=== PATIENT | female | born 1980 | race Caucasian/White ===

== ENCOUNTER 2024-08-09 16:34 | Emergency (ER) | payer OTHER, SELFPAY ==
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
--- OUTSIDE RECORDS SUMMARY | 2024-08-09 16:36 | XMS_ITS | Clinical Summary ---
Author Organization [facility] Address [address] [place] [address] Care Team Providers Care Cage Manager Name Role Phone Saida Fox MD Primary Care Provider [phone] Source Comments [facility],non-owned Affiliates and Associated Physician Practices is amultiple site organization consisting of ambulatory clinics and hospital sitesin [place], [place], [place] and [place]. This disclosure is being madepursuant to the Care Everywhere program and may not contain all information available regarding this patient. Last updated 18.[facility] Allergies No known active allergies Medications * This document contains information received from the source organization and may not represent a complete record from that organization. * Be aware that medications may not be up to date on this document. Alwaysverify current medications with the patient. albuterol HFA (VENTOLIN HFA) 108 (90 BASE) MCG/ACT inhaler Inhale 2 (two) puffs by mouth every 4 hours as needed 6 Active Blood Glucose Monitoring Suppl (CoalfireUCH VERIO) w/Device KIT 9 Active empagliflozin (JARDIANCE) 25 MG tablet Take 1 (one) tablet by mouth once daily 0 Active LORazepam (ATIVAN) 0.5 MG tablet Take 1 tablet by mouth every 12 hours as needed for Anxiety 60 tablet 0 Active ARIPiprazole (ABILIFY) 10 MG tablet Take 1 tablet by mouth once daily 30 tablet 3 0 Active escitalopram (LEXAPRO) 20 MG tablet Take 1 tablet by mouth once daily 30 tablet 3 0 Active cyclobenzaprin e (FLEXERIL) 10 MG tablet Take 1 (one) tablet by mouth 3 times daily as needed for Muscle Spasms 20 tablet 1 Active ibuprofen (MOTRIN) 800 MG tablet Take 1 (one) tablet by mouth every 6 hours as needed for Pain 20 tablet 1 Active atorvastatin (Lipitor) 20 MG tablet Take 1 (one) tablet by mouth 3 Active Trulicity 1.5 MG/0.5ML injection Inject 0.5 mL subcutaneously every Tuesday 3 Active lisinopril (Prinivil; Zestril) 20 MG tablet Take 1 (one) tablet by mouth once daily 3 Active Latuda 60 MG tablet Take 40 mg by mouth at bedtime 2 Active metFORMIN (Glucophage) 500 MG tablet Take 1 (one) tablet by mouth 2 times daily Active metoprolol succinate XL 24hr (Toprol XL) 100 MG tablet Take 1 (one) tablet by mouth once daily 3 Active acetaminophen (Tylenol) 325 MG tablet Take 2 (two) tablets by mouth every 6 hours Maximum allowable Acetaminophen amount = 4 Grams (4000 mg) / 24 hours. 3 Active gabapentin (Neurontin) 300 MG capsule Take 1 (one) capsule by mouth 3 times daily 30 capsule 3 3 Active erythromycin (Romycin) 5 MG/GM ophthalmic ointment Instill into left eye 4 times daily 3.5 g 3 Active ofloxacin (Ocuflox) 0.3 % ophthalmic solution Instill 1 (one) drop into left eye 4 times daily 10 mL 3 Active artificial tears ophthalmic solution Instill 1 (one) drop into left eye every hour while awake 30 mL 3 Active polyvinyl alcohol-povido ne PF 1.4-0.6 % ophthalmic solution Instill 1 (one) drop into left eye every hour while awake 50 Each 3 Active ganciclovir (Zirgan) 0.15 % ophthalmic gel Instill 1 (one) drop into left eye 5 times daily while awake 5 g 3 Active prednisoLONE acetate (Pred Forte) 1 % ophthalmic suspensionIndi cations:Herpes zoster ophthalmicus, left eye Instill 1 (one) drop into left eye 4 times daily 15 mL 1 3 Active capsaicin (Zostrix) 0.025 % creamIndicatio ns:Herpes zoster ophthalmicus, left eye Apply to affected area 3 times daily 25 g 3 Active amitriptyline (Elavil) 50 MG tablet Take 1 (one) tablet by mouth once daily 3 Active Blood Pressure Monitoring KIT Large cuff Take bp bid 2 Active busPIRone (Buspar) 10 MG tablet TAKE 1 TABLET BY MOUTH TWICE A DAY DIRECTED 3 Active cetirizine (ZyrTEC) 10 MG tablet Take 1 (one) tablet by mouth once daily Active clindamycin (Cleocin) 300 MG capsule TAKE 1 CAPSULE BY MOUTH EVERY 8 HOURS FOR 10 DAYS 3 Active doxazosin (Cardura) 1 MG tablet 1 tablet Orally Once a day Active vitamin D, ergocalciferol , (Drisdol) 1.25 MG (32366 UT) capsule TAKE 1 CAPSULE BY MOUTH EVERY WEEK DIRECTED 3 Active gabapentin (Neurontin) 800 MG tablet TAKE 1 TABLET BY MOUTH EVERY 8 HOURS NEEDED FOR 30 DAYS 3 Active HYDROcodone-ac etaminophen ([place]) 5-325 MG tablet 1 tablet as needed Orally every 6 hrs Active hydrOXYzine pamoate (Vistaril) 25 MG capsule TAKE 1 CAPSULE BY MOUTH TWICE A DAY NEEDED FOR ANXIETY for 15 Active levonorgestrel (Mirena, 52 MG,) 20 MCG/DAY IUD Active liothyronine (Cytomel) 25 MCG tablet 1 tablet on an empty stomach Orally Once a day for 30 day(s) Active lisinopril (Prinivil; Zestril) 10 MG tablet Take 1 (one) tablet by mouth once daily 2 Active LORazepam (Ativan) 1 MG tablet 1 tablet as needed Orally twice a day Active metFORMIN (Glucophage) 500 MG tablet Take 1 (one) tablet by mouth 2 times daily with morning and evening meal Active methocarbamol (Robaxin) 500 MG tablet TAKE 1 TABLET BY MOUTH 4 TIMES DAILY FOR 10 DAYS. Active methylPREDNISo lone (Medrol Dosepak) 4 MG tablet TAKE 6 TABLETS ON DAY 1 DIRECTED ON PACKAGE AND DECREASE BY 1 TAB EACH DAY FOR A TOTAL OF 6 DAYS 3 Active metoprolol tartrate IR (Lopressor) 50 MG tablet Take 1 (one) tablet by mouth 2 times daily Active mupirocin (Bactroban) 2 % ointment APPLY A SMALL AMOUNT TO AFFECTED AREA 3 TIMES A DAY 3 Active neomycin-polym yxin-dexameth (Maxitrol) ophthalmic suspension LOCATION: LEFT EYE. INSTILL ONE DROP INTO THE LEFT EYE THREE TIMES A DAY FOR FIVE DAYS 3 Active phentermine (Adipex-P) 37.5 MG tablet Take 1 (one) tablet by mouth once daily Active traMADol (Ultram) 50 MG tablet TAKE 1 TABLET BY MOUTH EVERY 8 HOURS NEEDED FOR 30 DAYS 3 Active topiramate (Topamax) 50 MG tablet 1 tablet Orally Twice a day Active prednisoLONE acetate (Pred Forte) 1 % ophthalmic suspension prednisolone acetate 1 % eye drops,suspension INSTILL 1 DROP INTO LEFT EYE 3 TIMES DAILY UNTIL NXT APPT IN 2 WEEKS Active Active Problems Problem Noted Date Diagnosed Date Herpes zoster conjunctivitis 09/18/2022 Herpes zoster ophthalmicus, left eye 09/18/2022 Bipolar 2 disorder 09/25/2018 Achilles tendinitis of right lower extremity MDD (major depressive disorder), recurrent episo de 11/20/2016 Bulimia nervosa 11/20/2016 Borderline personality disorder 11/03/2015 Sleep apnea 09/15/2015 GERD (gastroesophageal reflux disease) 4 Resolved Problems Problem Noted Date Diagnosed Date Resolved Date No diagnosis on [place] I 12/04/201709/25 Agoraphobia with panic disorder 11/20/2016 09/25/2018 Immunizations Immunization Administration Dates Next Due COVID ADRIANA PRIMARY 18+YR 07/24/2020 TDAP (7yrs+) 12/12/2011 Family History Medical History Relation Name Comments Diabetes Father Hypertension Father Depression Maternal Uncle Depression Mother Diabetes Mother Hypertension Mother Relation Name Status Comments Father Maternal Uncle Mother Social History Tobacco Use Types Packs/Day Years Used Date Smoking Tobacco: Every Day Cigarettes Smokeless Tobacco: Never Tobacco Cessation:Ready to Q uit: Not Asked; Counseling Given: Not Answered Alcohol Use Standard Drinks/Week Comments No 0 (1 standard drink = 0.6 oz pur e alcohol) Comments Unknown Sex and Gender Information Value Date Recorded Sex Assigned at Not on file 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 Gender Identity Not on file Sexual Orientation Not on file Last Filed Vital Signs Vital Sign Reading Time Taken Comments Blood Pressure 152/87 01/01/2023 10:48 AM CDT Pulse 100 01/01/2023 10:48 AM CDT Temperature 36.3 C (97.4 F) 01/01/2023 10:48 AM CDT Respiratory Rate 20 01/01/2023 10:48 AM CDT Oxygen Saturation 100% 01/01/2023 10:48 AM CDT Inhaled Oxygen Concentration - - Weight 167.8 kg (370 lb) 01/01/2023 10:48 AM CDT Height 180.3 cm (5' 11 ) 01/01/2023 10:48 AM CDT Body Mass Index 51.6 01/01/2023 10:48 AM CDT Plan of Treatment Health Maintenance Due Date Last Done Comments MAMMOGRAM 1980 Opioid Medication Agreement - Annual 1981 PAP SMEAR 1981 HIV SCREENING 1996 HEPATITIS C SCREENING 07/15/1999 HEPATITIS B VACCINE (1 of 3 - 19+ 3-dose series) 2000 PNEUMOCOCCAL VACCINE (1 of 2 - PCV) 2000 DTAP/TDAP/TD VACCINES (2 - Td or Tdap) 12/11/2021 12/12/2011 COVID-19 VACCINE (3 - season) 2023 05/16/2022, 07/24/2020 INFLUENZA VACCINE (Season Ended) 2024 03/26/2022 SCREENING FOR DIABETES 09/19/2025 , 09/19/2022, 09/18/2022, Additional history exists ZOSTER VACCINE (1 of 2) 07/20/2031 HIB VACCINE Aged Out No longer eligi ble based on patient's age to complete this topic HPV VACCINE Aged Out No longer eligi ble based on patient's age to complete this topic MENINGOCOCCAL (Group B) VACCINE SHARED DECISION-MAKING Aged Out No longer eligible based on patient's age to complete this topic MENINGOCOCCAL GROUPS A/C/Y/W VACCINE Aged Out No longer eligible based on patient's age to complete this topic Procedures Procedure Name Priority Date/Time Associated Diagnosis Comments GLUCOSE - POINT OF CARE Routine 09/19/2022 9:44 AM CDT from Last 3 Months or Most Recently Relevant to Health Maintenance Results * (ABNORMAL) GLUCOSE - POINT OF CARE (09/19/2022 9:44 AM CDT) Glucose WB/POC 146(H) 70 - 115 mg/dL 09/19/2022 9:49 AM CDT [facility] Specimen Type Cap Fingerstick 2022 9:49 AM CDT [facility] Blood BLOOD SPECIMEN / Unknown 09/19/2022 9:44 AM CDT 09/19/2022 9:49 AM CDT Dalia Hodges MD LAB - POINT OF CARE ORDERABLES Final Result [facility] [address] [place] [address], [facility] [phone] from Last 3 Months or Most Recently Relevant to Health Maintenance Insurance [facility] Advance Directives * Full Code (Latest Code Status on File) Date Activated Date Inactivated Comments 09/18/2022 10:01 PM 09/19/2022 7:37 PM Care Teams Cage Manager Relationship Specialty Start Date End Date Saida Fox MD [address] [place] [address], [address] [facility] [address] [place] [address] PCP - General Family Medicine 11/21/23
--- OUTSIDE RECORDS SUMMARY | 2024-08-09 16:36 | XMS_ITS | Encounter Summary ---
Author Organization [facility] Address [address] [place] [address] Care Team Providers Care Specimen Processor Name Role Phone Brenda Shelton MD Primary Care Provider [phone] Trever Elliott Primary Care Provider [phone] Saida Fox MD Primary Care Provider [phone] Encounter Details Date Type Department Care Team (Late st Contact Info) Description 09/18/2022 Ophth Exam [facility] - Ophthalmology [address] [place] [address] Bernie Anders DO [address] [place] [address] Social History Tobacco Use Types Packs/Day Years Used Date Smoking Tobacco: Every Day Cigarettes Smokeless Tobacco: Never Alcohol Use Standard Drinks/Week Comments No 0 (1 standard drink = 0.6 oz pur e alcohol) Comments Unknown Sex and Gender Information Value Date Recorded Sex Assigned at Not on file 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 Gender Identity Not on file Sexual Orientation Not on file documented as of this encounter Plan of Treatment Not on file documented as of this encounter Visit Diagnoses Not on filedocumented in this encounter Care Teams Specimen Processor Relationship Specialty Start Date End Date Brenda Shelton MD [address] [place] [id number] PCP - General 09/10/15 11/01/22 Trever Elliott PA [address] [place] [phone] PCP - General Physician Fiber Design Engineer 11/02/22 11/20/23 Saida Fox MD [facility], [address] [place] [address] [place] [address] PCP - General Family Medicine 11/21/23 documented as of this encounter
--- OUTSIDE RECORDS SUMMARY | 2024-08-09 16:36 | XMS_ITS ---
Author Organization 1 OF [facility] Address [address] [place] [address] Care Team Providers Care Android Programmer Name Role Phone Saida Olivera Primary Care Provider Jackie Lockwood [phone] REASON FOR VISIT vob Encounters Encounter Location Date Provider Diagnosis 1 OF Erika [facility] [address] [place] [address] 02/10/2024 Jackie Contreras Plan Of Treatment Next Appt Details Provider Name:Jackie Contreras, 02/11/2025 09:00:00 AM, [address], [place], [address], Progress Notes * Judah GALVEZ:1980 ( 43 yo F)Acc No.[id number]:02/10/2024 Patient: Derek BAY :1980 A ge:43 Y S ex:Female Address:[address] [place], [address] * true * Date: Generated for Mary levy/Nayelyg/eTransmitting on: 0 08/09/2024 04:36 PM CDT
--- OUTSIDE RECORDS SUMMARY | 2024-08-09 16:36 | XMS_ITS | Encounter Summary ---
Author Organization [facility] Address [address] [facility] [place] [address] Care Team Providers Care Fur Blender Name Role Phone Brenda Shelton MD Primary Care Provider [phone] Trever Elliott Primary Care Provider [phone] Saida Fox MD Primary Care Provider [phone] Encounter Details Date Type Department Care Team (Late st Contact Info) Description 10/09/2022 Ophth Exam [facility] - Ophthalmology [address] [place] [address] Mariel Marshall MD [address] [place] [address] Social History Tobacco Use Types Packs/Day Years Used Date Smoking Tobacco: Every Day Cigarettes Smokeless Tobacco: Never Alcohol Use Standard Drinks/Week Comments No 0 (1 standard drink = 0.6 oz pur e alcohol) Comments Unknown Sex and Gender Information Value Date Recorded Sex Assigned at Not on file 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 Gender Identity Not on file Sexual Orientation Not on file documented as of this encounter Plan of Treatment Not on file documented as of this encounter Visit Diagnoses Not on filedocumented in this encounter Care Teams Fur Blender Relationship Specialty Start Date End Date Brenda Shelton MD [address] [place] [phone] PCP - General 09/10/15 11/01/22 Trever Elliott PA [address] [place] [phone] PCP - General Physician Oil Rag Washer 11/02/22 11/20/23 Saida Fox MD [address] [place] [address], [facility] [address] [facility] [id number] [place] [address] PCP - General Family Medicine 11/21/23 documented as of this encounter
--- OUTSIDE RECORDS SUMMARY | 2024-08-09 16:37 | XMS_ITS ---
Author Organization 1 OF [facility] Address [address] [address] Care Team Providers Care Millwright Name Role Phone Saida Olivera Primary Care Provider UnavailJackie Jasmine Unavailable [phone] Allergies No Known Allergies REASON FOR VISIT Blisters on LT foot Medications Medication SIG (Take, Route, Fr equency, Duration) Notes Start Date End Date Status Metoprolol Succinate ER Active Mounjaro Active Lisinopril Active Escitalopram Oxalate Active Nexplanon Active Cymbalta Active Gabapentin Active Social History Tobacco Use: Social History Observation Description Date Details (start date - stop date) Current Smoker NA - NA Tobacco Control (Standard) Question Answer Notes Tobacco use: Current smoker Problems Problem Type SNOMED Code ICD Code Onset Dates Problem Status W/U Status Risk Notes Problem [id number] Type 2 diabetes mellitus with other diabetic neurological complication (E11.49) Active confirmed Vital Signs Height 71 in 02/13/2024 Weight 333 lbs 02/13/2024 BMI 46.44 kg/m2 02/13/2024 Encounters Encounter Location Date Provider Diagnosis 1 OF [facility] [address] [address] 02/13/2024 Jackie Contreras Blister of second to e S90.426A ; Type 2 diabetes mellitus with other diabetic neurological complication E11.49 ; Xerosis of skin L85.3 ; Callus of foot L84 ; Right foot pain M79.671 and Left foot pain M79.672 Assessments Encounter Date Diagnosis (ICD Code) Assessment Notes Treatment Notes Treatment Clinical Notes Section Notes 02/13/2024 Blister of second toe (ICD-10 - S90.426A) Patient visit today included a review of medical history, review of systems, physical exam and discussion of exam findings, and discussion of diagnoses and treatment options.I discussed with the patient that she has no signs of infection to the toe and the blister is not open. I explained that it could potentially be shingles. She was advised to keep the toes covered with antibiotic ointment and a Band-Aid. She will contact her primary care doctor for potential treatment of shingles. She will call with any further issues. 02/13/2024 Type 2 diabetes mellitus with other diabetic neurological complication (ICD-10 - E11.49) Diabetic foot education was discussed including the nature of increased risk of developing foot problems due to the damage nerves and vessels of the feet caused by diabetes. The importance of daily self foot exams was stressed. Additionally, the patient was encouraged to control the blood sugar as well as possible and I explained the direct correlation between the incidence of diabetic foot complications and how well the blood sugar is controlled. I encouraged the patient to walk for exercise to help improve circulation to the feet as well as to help control excess blood sugar which I explained may also help to reduce or slow the progression of neuropathy symptoms. Additionally I recommended daily application of lotion to the feet to keep skin well hydrated. Advised to avoid walking w/o shoes on and discussed the importance of wearing properly fitted and supportive shoes and how wearing a shoe that does not fit properly can lead to blisters, open sores, infections and amputation. Literature regarding diabetic foot care was dispensed 02/13/2024 Xerosis of skin (ICD-10 - L85.3) She purchased at [employer] lotion and can apply this daily. 02/13/2024 Callus of foot (ICD-10 - L84) Considering the associated comorbidities and physical exam findings today, this patient is at substantial risk of developing serious foot complications in the absence of regular and professional palliative foot care. 02/13/2024 Right foot pain (ICD-10 - M79.671) 02/13/2024 Left foot pain (ICD-10 - M79.672) Plan Of Treatment Treatment Notes Assessment Notes Blister of second toe Patient visit chiojosue villatoro included a review of medical history, review of systems, physical exam and discussion of exam findings, and discussion of diagnoses and treatment options.I discussed with the patient that she has no signs of infection to the toe and the blister is not open. I explained that it could potentially be shingles. She was advised to keep the toes covered with antibiotic ointment and a Band-Aid. She will contact her primary care doctor for potential treatment of shingles. She will call with any further issues. Type 2 diabetes mellitus wit h other diabetic neurological complication Diabetic foot education was discussed including the nature of increased risk of developing foot problems due to the damage nerves and vessels of the feet caused by diabetes. The importance of daily self foot exams was stressed. Additionally, the patient was encouraged to control the blood sugar as well as possible and I explained the direct correlation between the incidence of diabetic foot complications and how well the blood sugar is controlled. I encouraged the patient to walk for exercise to help improve circulation to the feet as well as to help control excess blood sugar which I explained may also help to reduce or slow the progression of neuropathy symptoms. Additionally I recommended daily application of lotion to the feet to keep skin well hydrated. Advised to avoid walking w/o shoes on and discussed the importance of wearing properly fitted and supportive shoes and how wearing a shoe that does not fit properly can lead to blisters, open sores, infections and amputation. Literature regarding diabetic foot care was dispensed Xerosis of skin She purchased at [employer] lotion and can apply this daily. Callus of foot Considering the asso ciated comorbidities and physical exam findings today, this patient is at substantial risk of developing serious foot complications in the absence of regular and professional palliative foot care. Next Appt Details Follow Up: 1 Year,prn, John n: Provider Name:Jackie Contreras, 02/11/2025 09:00:00 AM, [address], [facility] [address], [place], [address], Procedure Notes * Category Sub-Category Detail Notes PALLIATIVE FOOT CARE: Callus paring: (57860) Fi ve or more calluses as noted above reduced with a sterile scalpel blade Progress Notes * Derek GALVEZ LDOB:1980 (43 yo F)Acc No.[id number]:02/13/2024 Progress Notes Patient: Derek BAY Provider: Charis Contreras DPM :1980 A ge:43 Y S ex:Female Date:02/13/2024 [id number] Pcp:Saida Olivera Subjective: * Chief Complaints: * B listers on LT foot * HPI: P rimary reason for visit:: New Patient Evaluation: [age] year old female, referred by google/internet search, PTO with chief complaint of blisters on the left foot that are itchy and painful. She states that she also has large calluses that are painful. She says this started suddenly about a week ago with the blisters. She denies any injury. She says the pain she is having is sharp and rates it a 3/10. Pt states the problem has improved but gets worse when she wear shoes, when walking and standing too long. She states not wearing shoes or being off her feet helps the problem. Pt denies any treatment to fix the issue. Pt reports she has had shingles this year and was worried if the blisters were related to the virus. She is scheduled to see her PCP also. She states the calluses hurt when she walks. She is a diabetic. Age diagnosed: 41 Last A1c: 6.8. * ROS: G ENERAL: NAUSEA, FEVER OR CHILLS d enies, d enies. U NEXPLAINED LOSS OR GAIN OF WEIGHT d enies. U NEXPLAINED FATIGUE OR LACK OF ENERGY d enies. R ECENT FALL d enies. P ERIPHERAL VASCULAR: FATIGUE IN CALF MUSCLE WHILE WALKING d enies. P AIN, SWELLING OR FEELING OF TIGHTNESS IN LEG d enies. F REQUENT OR CHRONIC SWELLING OF LEGS d enies. T OES TURN BLUE, WHITE, PAINFUL WITH COLD TEMPERATURE d enies. N EUROLOGICAL: DIZZINESS, LIGHT HEADED OR FAINTING d enies. W EAKNESS OR PARALYSIS d enies. D IFFICULTY WITH BALANCE d enies. P ERIPHERAL NEUROLOGICAL: BURNING, TINGLING, STINGING SENSATION OF FEET d enies. N UMBNESS OF FOOT / FEET d enies. W EAKNESS OF FOOT / FEET d enies. G ASTROINTESTINAL: ABDOMINAL PAIN d enies. B LOODY STOOL d enies. F REQUENT HEARTBURN d enies. F REQUENT NAUSEA OR VOMITING d enies. S KIN: EXCESSIVE SWEATING OF FEET / HANDS d enies. C HRONIC OR RECURRENT SKIN RASH d enies. N ONHEALING SKIN LESIONS d enies. T ENDENCY TO FORM THICK SCARS (KELOIDS) d enies. M USCULOSKELETAL: LOW BACK PAIN d enies. H IP PAIN d enies. K NEE PAIN d enies. S WELLING / STIFFNESS JOINTS OF HANDS / FEET d enies. H EMATOLOGY/ONCOLOGY: ANEMIA d enies. B LEED or BRUISE EASILY d enies.?ANTI-COAGULANT USE d enies. * Medical History: * Surgical History: N o Surgical History documented. * Hospitalization/Major Diagno stic Procedure: * Family History: diabetes, gout, breast cancer, ovarian. * Social History: T obacco Use: T obacco Control (Standard) T obacco use: C urrent smoker D rugs/Alcohol: A lcohol use: Denies current alcohol use. Recreational drugs: Patient denies recreational drug use. M iscellaneous: L iving with: spouse. 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 * Medications: T akingGabapentin Cymbalta Mounjaro Metoprolol Succinate ER Nexplanon Escitalopram Oxalate Lisinopril Medication List reviewed and reconciled with the patientTaking Gabapentin Taking Cymbalta Taking Mounjaro Taking Metoprolol Succinate ER Taking Nexplanon Taking Escitalopram Oxalate Taking Lisinopril Medication List reviewed and reconciled with the patient * Allergies: N .K.D.A.no[Allergies Verified] Objective: * Vitals: W t:333lbs, Wt-k.05 kg, Ht: 71 in, BMI:46.44Index. * Examination: G eneral Examination: Constitutional / Appearance: N o acute distress , Well nourished, Appropriate personal hygiene. Mental status: C ooperative, Oriented to person, place and time, Mood and affect: normal, Judgement and intellect: normal with appropriate response to questions. Shoes today: s lides. DIABETIC FOOT EXAM L ower Extremity Neurological Exam performed:?Yes F ootwear Evaluation performed: Y es L ower Extremity VASCULAR: : Pulses: D P and PT pulses, palpable, bilateral. Temperature gradient: w arm from proximal to distal, bilateral. Pedal hair: p resent, bilateral. Capillary refill at distal toes l ess than 3 seconds, bilateral. L ower Extremity DERM: : Skin: d ry, n o suspicious lesions, without interdigital maceration, bilateral. There is some mild erythema noted to the dorsal second toe DIPJ. There is a possible blister noted deep in the soft tissue at the tip of the second toe. No drainage noted. No acute signs of infection noted. No increased skin temperature noted. Pain with palpation of the toe. Multiple skin fissures noted bilaterally on the plantar aspect of the foot. No active open wound noted.. Nails: N ails appear unremarkable. Hyperkeratotic lesions LEFT foot: s ub 5th MTH, sub 1st MTH. Hyperkeratotic lesions RIGHT foot: m edial hallux IPJ, sub 1st MTH, sub 5th MTH. L ower Extremity NEURO: : General sensation appears i ntact, bilateral. Muscle tone w ithin normal limits, bilateral. Monofilament test (10 gram pressure) E xam of 02/13/2024?revealed intact sensation to, entire foot, bilateral. Vibration perception: E xam of 02/13/2024: n oted significantly diminished per evaluation with 128Hz tuning fork applied to distal hallux compared to ipsilateral medial malleolus @ bilateral feet. L ower Extremity MSK: : Gait W devon-based gait. Foot type: B ilateral lower extremity exhibits p es cavus foot type with increased medial arch. Muscle strength: 5 /5, all 4 quadrants tested, bilateral.? Left lower extremity inspection and palpation: N o palpable masses or nodules noted. Adequate range of motion noted to the joints. Some pain with palpation of the second toe.. Right lower extremity inspection and palpation: N o palpable masses or nodules noted. Adequate range of motion noted to the joints. . Assessment: * Assessment: 1. T ype 2 diabetes mellitus with other diabetic neurological complication - E11.49 (Primary)? 2. B peter of second toe - S90.426A 3 . X erosis of skin - L85.3 4 . C allus of foot - L84 5 . R ight foot pain - M79.671 6 . L eft foot pain - M79.672 Plan: * Treatment: 2. B peter of second toe Notes: Patient visit today included a review of medical history, review of systems, physical exam and discussion of exam findings, and discussion of diagnoses and treatment options.I discussed with the patient that she has no signs of infection to the toe and the blister is not open. I explained that it could potentially be shingles. She was advised to keep the toes covered with antibiotic ointment and a Band-Aid. She will contact her primary care doctor for potential treatment of shingles. She will call with any further issues. 3. X erosis of skin Notes: She purchased at [employer] lotion and can apply this daily. 4. C allus of foot Notes: Considering the associated comorbidities and physical exam findings today, this patient is at substantial risk of developing serious foot complications in the absence of regular and professional palliative foot care. * Procedures: P ALLIATIVE FOOT CARE:: Callus paring: ( [id number]) Five or more calluses as noted above reduced with a sterile scalpel blade. * Procedure Codes: 1 1057 TRIM SKIN LESIONS, OVER 18534G HG A1C LEVEL LT 7.0% * Follow Up: 1 Year,prn * Images: * MINER BLASTING Sign off status: Completed true * Provider: Charis Contreras DPM Date: Generated for Mary levy/Soila/Hyacinthitting on: 0 08/09/2024 04:37 PM CDT History and Physical Notes * HPI (History of Present Illness) Category Sub-Category Detail Notes Category Not es Primary reason for visit: New Patient Evaluation: 43 year old female, referred by google/internet search, PTO with chief complaint of blisters on the left foot that are itchy and painful. She states that she also has large calluses that are painful. She says this started suddenly about a week ago with the blisters. She denies any injury. She says the pain she is having is sharp and rates it a 3/10. Pt states the problem has improved but gets worse when she wear shoes, when walking and standing too long. She states not wearing shoes or being off her feet helps the problem. Pt denies any treatment to fix the issue. Pt reports she has had shingles this year and was worried if the blisters were related to the virus. She is scheduled to see her PCP also. She states the calluses hurt when she walks. She is a diabetic.Age diagnosed: 41Last A1c: 6.8 Examination Category Sub-Category Detail Notes Category Not es General Examination Mental status: Cooperative, Oriented to person, place and time, Mood and affect: normal, Judgement and intellect: normal with appropriate response to questions Shoes today: slides Constitutional / Appearance: No acute di stress , Well nourished, Appropriate personal hygiene DIABETIC FOOT EXAM Lower Extremity Neurological Exam performed:: Yes Footwear Evaluation performed:: Yes Lower Extremity VASCULAR: Pulses: DP and PT pulse s, palpable, bilateral Temperature gradient: warm from proximal to distal, bilateral Pedal hair: present, bilateral Capillary refill at distal toes less oli n 3 seconds, bilateral Lower Extremity NEURO: Monofilament test (10 gram pressure) Exam of 02/13/2024 revealed intact sensation to, entire foot, bilateral Vibration perception: Exam of 02/13/2024 : noted significantly diminished per evaluation with 128Hz tuning fork applied to distal hallux compared to ipsilateral medial malleolus @ bilateral feet General sensation appears intact, bilate ral Muscle tone within normal limits , bilateral Lower Extremity MSK: Muscle strength: 5/5, all 4 quadr ants tested, bilateral Foot type: Bilateral lower extr emity exhibits pes cavus foot type with increased medial arch Left lower extremity inspect ion and palpation: No palpable masses or nodules noted. Antonina quate range of motion noted to the joints. Some pain with palpation of the second toe. Right lower extremity inspec tion and palpation: No palpable masses or nodules noted. Antonina quate range of motion noted to the joints. Gait Wide-based gait Lower Extremity DERM: Skin: dry, no sahu spicious lesions, without interdigital maceration, bilateral. There is some mild erythema noted to the dorsal second toe DIPJ. There is a possible blister noted deep in the soft tissue at the tip of the second toe. No drainage noted. No acute signs of infection noted. No increased skin temperature noted. Pain with palpation of the toe. Multiple skin fissures noted bilaterally on the plantar aspect of the foot. No active open wound noted. Nails: Nails appear unremar kable Hyperkeratotic lesions LEFT foot: sub 5t h MTH, sub 1st MTH Hyperkeratotic lesions RIGHT foot: media l hallux IPJ, sub 1st MTH, sub 5th MTH
--- OUTSIDE RECORDS SUMMARY | 2024-08-09 16:37 | XMS_ITS ---
Author Organization [facility] Address [address] [place] [address] Care Team Providers Care Housekeeping Supervisor Name Role Phone Corey Harvey Primary Care Provider Allergies No Known Allergies REASON FOR VISIT Dizziness, Exhaustion Blood Sugars abnormal. Medications Medication SIG (Take, Route, Frequency, Duration) Notes Start Date End Date Status Escitalopram Oxalate 20 MG 1 tablet Orally at night Active busPIRone HCl 10 MG 1 tablet Orally Twic e a day for 30 days Active Mounjaro 10 MG/0.5ML 10 mg Subcutaneous weekly Active Lisinopril 10 MG 1 tablet Orally Once a day Active Metoprolol Tartrate 50 MG 1 tablet with food Orally Twice a day for 30 day(s) Active Lurasidone HCl 40 MG 1 tablet in the evening with food Orally Once a day for 30 days Active Latuda 60 MG 1 tablet with food Orally at night for 30 days Active Gabapentin 100 MG 1 capsule Orally FOU R TIMES A DAY for 30 days DOSE CHANGE 07/20/24 Active Social History Tobacco Use: Social History Observation Description Date Details (start date - stop date) Current Smoker NA - NA Sex Assigned At : Social History Observation Description Sex Assigned At Female Tobacco Control (Standard) Question Answer Notes Tobacco use: Current smoker How often do you smoke cigarettes? Some days, bu t not every day Additional Findings: Tobacco user e-cigarette Problems Problem Type SNOMED Code ICD Code Onset Dates Problem Status W/U Status Risk Notes Problem Overweight (658171703) Over weight (E66.3) Active confirmed Vital Signs Weight 332.0 lbs 07/20/2024 Height 71 in 07/20/2024 BMI 46.3 kg/m2 07/20/2024 Blood pressure systolic 116 mm Hg 07/21/19 25 Blood pressure diastolic 66 mm Hg 025 Heart Rate 70 /min 07/20/2024 Oximetry 99 % 07/20/2024 Temperature 98.2 degrees Fahrenheit 07/21/19 25 Respiratory Rate 16 /min 07/20/2024 Encounters Encounter Location Date Provider Diagnosis [facility] [place] [address] 07/20/2024 Corey Harvey Over weight E66.3 and Fatigue R53.83 Assessments Encounter Date Diagnosis (ICD Code) Assessment Notes Treatment Notes Treatment Clinical Notes Section Notes 07/20/2024 Over weight (ICD-10 - E66.3) 07/20/2024 Fatigue (ICD-10 - R53.83) LOWER GABAPENTIN FROM 300 MG BID TO 100 MG QID (1 IN AM AND 3 AT NIGHT). IF STILL TIRED WILL LOWER BUSPAR TO 1/2 TAB IN THE AM. IF STILL TIRED AFTER ANOTHER WEEK WILL CONTACT PSYCH FOR MED ADJUSTMENT. Plan Of Treatment Medication Medication Name Sig Start Date Stop Date Notes Gabapentin 100 MG 1 capsule Orally FOU R TIMES A DAY for 30 days DOSE CHANGE 07/20 Next Appt Details Follow Up: 4 Weeks, Reason: fatigue, med adjustments Progress Notes * Nate GALVEZaDOB:1980 ( 44 yo F)Acc No.[id number]:07/20/2024 Progress Note Patient: Derek BAY Provider: Zak Harvey :1980 A ge:44 Y S ex:Female Date:07/20/2024 Address: [address] Subjective: * Chief Complaints: * D izziness, Exhaustion Blood Sugars abnormal. * HPI: I nterim History: FATIGUE SINCE STARTING BUSPAR AND LURASIDONE. BUT IS DOING MUCH BETTER MENTALLY. 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 BS RUNNING 70'S TO 250'S, DEPENDENT UPON DIET. WEARS CPAP AT NIGHT. IS NOT DROWSY BUT IS TIRED. 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 Emergency room visit N o. Was hospitalized N o. D epression Screening: PHQ-9 L ittle interest or pleasure in doing things?Not at all F eeling down, depressed, or hopeless N ot at all T rouble falling or staying asleep, or sleeping too much N ot at all F eeling tired or having little energy N early every day P oor appetite or overeating N ot at all F eeling bad about yourself or that you are a failure, or have let yourself or your family down S everal days T rouble concentrating on things, such as reading the newspaper or watching television N ot at all M oving or speaking so slowly that other people could have noticed; or the opposite, being so fidgety or restless that you have been moving around a lot more than usual N ot at all T houghts that you would be better off or of hurting yourself in some way N ot at all T otal Score 4 I nterpretation M inimal Depression S creening: [place] Suicide Severity Rating Scale (LF) D o you want to initiate with S creener form 1 . Wish to be : Have you wished you were or wished you could go to sleep and not wake up? N o 2 . Suicidal Thoughts: Have you actually had any thoughts of killing yourself? N o 6 . Suicide Behavior Question: Have you ever done anything,started to do anything, or prepared to end your life? N o I nterpretation: L ow Risk C SSRS Interpretation and Follow Up Plan: CSSRS Interpretation and Follow Up Plan C SSRS Screen documented using SF Y es R isk Disposition from L ow - No Follow Up Plan Required F ollow Up Plan N o Follow Up Plan required at this time. T imeframe of Screening T jelena * ROS: B asic ROS: Admits F ivy. * Medical History: * Surgical History: w rist (R) age 15 * [facility] * Family History: F ather: alive, Diabetic Neuropathy Arthritis. M other: alive, DiabeticHTNObese. S iblings: , car accident- Bipolar disorder. 1 sister(s) . 2 daughter(s) - healthy. . drug and alcohol addiction is strong in my family Mom- BPD and suicidal tendencies; she tried to commit suicide 3 times Sister- bipolar disorder, substance use Daugther- bipolar disorder Maternal Uncle- major depression Youngest daughter OCD anxiety. * Social History: Ashley shi Social History: L iving Arrangement L iving Arrangement: I ndependent Living I s this a supportive environment? 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 0 T obacco Use: T obacco Control (Standard) T obacco use: C urrent smoker H ow often do you smoke cigarettes? S ome days, but not every day A dditional Findings: Tobacco user e -cigarette D rugs/Alcohol: D rugs H ave you used drugs other than those for medical reasons in the past 12 months? N o Do you drink alcohol?: No. H ousehold: H ousehold M arital status: m arried N umber of adults in household: 2 M iscellaneous: M ethod of learning P referred method of learning: R david,Discussion,Demonstration,Hearing,Other * Medications: T akingMounjaro 10 MG/0.5ML Solution Auto-injector 10 mg Subcutaneous weekly Lisinopril 10 MG Tablet 1 tablet Orally Once a day Metoprolol Tartrate 50 MG Tablet 1 tablet with food Orally Twice a day Lurasidone HCl 40 MG Tablet 1 tablet in the evening with food Orally Once a day Latuda 60 MG Tablet 1 tablet with food Orally at night Escitalopram Oxalate 20 MG Tablet 1 tablet Orally at night busPIRone HCl 10 MG Tablet 1 tablet Orally Twice a day Gabapentin 300 MG Capsule 1 capsule Orally Once a day Taking Mounjaro 10 MG/0.5ML Solution Auto-injector 10 mg Subcutaneous weekly Taking Lisinopril 10 MG Tablet 1 tablet Orally Once a day Taking Metoprolol Tartrate 50 MG Tablet 1 tablet with food Orally Twice a day Taking Lurasidone HCl 40 MG Tablet 1 tablet in the evening with food Orally Once a day Taking Latuda 60 MG Tablet 1 tablet with food Orally at night Taking Escitalopram Oxalate 20 MG Tablet 1 tablet Orally at night Taking busPIRone HCl 10 MG Tablet 1 tablet Orally Twice a day Taking Gabapentin 300 MG Capsule 1 capsule Orally Once a day DiscontinuedCymbalta 60 MG Capsule Delayed Release Particles 1 capsule Orally Once a day Naproxen 500 MG Tablet 1 tablet with food or milk as needed Orally every 12 hrs As needed PAINCyclobenzaprine HCl 10 MG Tablet 1 tablet at bedtime as needed Orally Once a day Topamax 50 MG Tablet 1 tablet Orally Once a day Amoxicillin-Pot Clavulanate 875-125 MG Tablet 1 tablet with food Orally every 12 hrs predniSONE 10 MG Tablet 1 tablet Orally Once a day Cetirizine HCl 10 MG Tablet 1 tablet as needed Orally Once a day Propranolol HCl 10 MG Tablet 1 tablet on an empty stomach Orally three times a day As neededMedication List reviewed and reconciled with the patientDiscontinued Cymbalta 60 MG Capsule Delayed Release Particles 1 capsule Orally Once a day Discontinued Naproxen 500 MG Tablet 1 tablet with food or milk as needed Orally every 12 hrs As needed PAINDiscontinued Cyclobenzaprine HCl 10 MG Tablet 1 tablet at bedtime as needed Orally Once a day Discontinued Topamax 50 MG Tablet 1 tablet Orally Once a day Discontinued Amoxicillin-Pot Clavulanate 875-125 MG Tablet 1 tablet with food Orally every 12 hrs Discontinued predniSONE 10 MG Tablet 1 tablet Orally Once a day Discontinued Cetirizine HCl 10 MG Tablet 1 tablet as needed Orally Once a day Discontinued Propranolol HCl 10 MG Tablet 1 tablet on an empty stomach Orally three times a day As neededMedication List reviewed and reconciled with the patient * Allergies: N .K.D.A.no[Allergies Verified] Objective: * Vitals: I nitials:TT, Wt:332.0, Ht: 71, BMI:46.3, BP:116/66, HR:70, Oxygen sat %:99, Temp:98.2, RR:16, LMP: n/a, Pain scale:0. * Examination: G eneral Examination: GENERAL APPEARANCE: w ell developed, well nourished, in no acute distress. Assessment: * Assessment: 1. O kelvin weight - E66.3 2 . F atigue - R53.83 (Primary) Plan: * Treatment: 2. O kelvin weight Refill Gabapentin Capsule, 100 MG, 1 capsule, Orally, FOUR TIMES A DAY, 30 days, 120 Capsule, Refills 5, Notes to Pharmacist: DOSE CHANGE 07/20/24. * Recommended Wellness and Pre vention Guidelines: * S tatus A lert L ast Done N ext Due A ction Taken N ONCOMPLIANT A 1C control (< 7%) 0 05/25/2024 0 07/20/2024 - N ONCOMPLIANT B reast cancer screening - 0 07/20/2024 - N ONCOMPLIANT C ervical cancer screening - 0 07/20/2024 - N ONCOMPLIANT H IV screening - 0 07/20/2024 - * Procedure Codes: 3 008F BODY MASS INDEX DOCD * Preventive Medicine: Counseling: S MOKING: Patient counselled on the dangers of tobacco use and urged to quit. . C are goal follow-up plan: BMI management provided Y es Above Normal BMI Follow-up L ifestyle education regarding diet * Follow Up: 4 Weeks (Reason: fatigue, med adjustments) * * Sign off status: Completed true * Provider: Zak Harvey Date: 0 07/20/2024 Generated for Mary levy/Soila/Nell on: 0 08/09/2024 04:37 PM CDT History and Physical Notes * HPI (History of Present Illness) Category Sub-Category Detail Notes Category Not es Interim History Was hospitalized No Emergency room visit No Depression Screening PHQ-9 Little inte rest or pleasure in doing things: Not at all Feeling down, depressed, or hopeless: No t at all Trouble falling or staying asleep, or sl eeping too much: Not at all Feeling tired or having little energy: N early every day Poor appetite or overeating: Not at all Feeling bad about yourself o r that you are a failure, or have let yourself or your family down: Several days Trouble concentrating on thi ngs, such as reading the newspaper or watching television: Not at all Moving or speaking so slowly that other people could have noticed; or the opposite, being so fidgety or restless that you have been moving around a lot more than usual: Not at all Thoughts that you would be b diana off or of hurting yourself in some way: Not at all Total Score: 4 Interpretation: Minimal Depression Screening [place] Suicide Sev erity Rating Scale (LF) Do you want to initiate with: Screener form 1. Wish to be : Have you wished you were or wished you could go to sleep and not wake up?: No 2. Suicidal Thoughts: Have you actually had any thoughts of killing yourself?: No 6. Suicide Behavior Question: Have you ever done anything,started to do anything, or prepared to end your life?: No Interpretation:: Low Risk CSSRS Interpretation and Follow Up Plan CSSRS Interpretation and Follow Up Plan CSSRS Screen documented using SF: Yes Risk Disposition from SF: Low - No Follo w Up Plan Required Follow Up Plan: No Follow Up Plan requir ed at this time. Timeframe of Screening: Today Examination Category Sub-Category Detail Notes Category Not es General Examination GENERAL APPEARANCE: well dev eloped, well nourished, in no acute distress
--- OUTSIDE RECORDS SUMMARY | 2024-08-09 16:37 | XMS_ITS ---
Author Organization [facility] Address [address] [place] [address] Care Team Providers Care Panel Gluer Name Role Phone Corey Harvey Primary Care Provider Idalmis Leyva [phone] REASON FOR VISIT 2 Week Psych Med Check Medications Medication SIG (Take, Route, Frequency, Duration) Notes Start Date End Date Status busPIRone HCl 10 MG 1 tablet Orally Twic e a day for 30 days Active Gabapentin 100 MG 1 capsule Orally FOU R TIMES A DAY for 30 days DOSE CHANGE 07/20/24 Active Lurasidone HCl 40 MG 1 tablet in the evening with food Orally Once a day for 30 days Active Lisinopril 10 MG 1 tablet Orally Once a day Active Metoprolol Tartrate 50 MG 1 tablet with food Orally Twice a day for 30 day(s) Active Propranolol HCl 10 MG 1 tablet on an empty stomach Orally three times a day for 30 days As needed Active busPIRone HCl 10 MG 1 tablet Orally Twic e a day for 30 days Active Mounjaro 10 MG/0.5ML 10 mg Subcutaneous weekly Active Escitalopram Oxalate 20 MG 1 tablet Orally at night for 30 days Active Latuda 60 MG 1 tablet with food Orally at night for 30 days Active Social History Sex Assigned At : Social History Observation Description Sex Assigned At Female Encounters Encounter Location Date Provider Diagnosis [address] [place] [address] 07/26/2024 Idalmis Leyva Generalized anxiety disorder F41.1 ; PTSD (post-traumatic stress disorder) F43.10 and Major depression F32.9 Assessments Encounter Date Diagnosis (ICD Code) Assessment Notes Treatment Notes Treatment Clinical Notes Section Notes 07/26/2024 Generalized anxiety disorder (ICD-10 - F41.1) Past failed trials include Seroquel and risperdal both ineffective or adverse effects; Abilify stopped due to gambling concerns, Past trials of prazosin, doxazosin, clonidine, hydroxyzine, Xanax, diazepam, Klonopin and propranolol ineffective. 07/26/2024 PTSD (post-traumatic stress disorder) (ICD-10 - F43.10) Past failed trials include Seroquel and risperdal both ineffective or adverse effects; Abilify stopped due to gambling concerns, Past trials of prazosin, doxazosin, clonidine, hydroxyzine, Xanax, diazepam, Klonopin and propranolol ineffective. 07/26/2024 Major depression (ICD-10 - F32.9) Past failed trials include Seroquel and risperdal both ineffective or adverse effects; Abilify stopped due to gambling concerns, Past trials of prazosin, doxazosin, clonidine, hydroxyzine, Xanax, diazepam, Klonopin and propranolol ineffective. Plan Of Treatment Medication Medication Name Sig Start Date Stop Date Notes Propranolol HCl 10 MG 1 tablet on an emp ty stomach Orally three times a day for 30 days busPIRone HCl 10 MG 1 tablet Orally Twic e a day for 30 days Escitalopram Oxalate 20 MG 1 tablet Oral ly at night for 30 days Latuda 60 MG 1 tablet with food O rally at night for 30 days Next Appt Details Follow Up: 3 Months, Reason: f/u anxiety Progress Notes * Pritesh GALVEZB:1980 ( 44 yo F)Acc No.[id number]:07/26/2024 Patient: Rowdy JAKEDerek Provider: JUANI Jauregui :1980 A ge:44 Y S ex:Female Date:07/26/2024 Address: [facility] Pcp:Corey Harvey Subjective: * Chief Complaints: * 2 Week Psych Med Check * HPI: D epression Screening: PHQ-9 L ittle interest or pleasure in doing things N ot at all, F eeling down, depressed, or hopeless N ot at all, T rouble falling or staying asleep, or sleeping too much N ot at all, F eeling tired or having little energy S everal days, P oor appetite or overeating S everal days, F eeling bad about yourself or that you are a failure, or have let yourself or your family down S everal days, T rouble concentrating on things, such as reading the newspaper or watching television N ot at all, M oving or speaking so slowly that other people could have noticed; or the opposite, being so fidgety or restless that you have been moving around a lot more than usual N ot at all, T houghts that you would be better off or of hurting yourself in some way N ot at all, T otal Score 3 , I nterpretation M inimal Depression. S ummary: Summary: H istory of Presenting Illness: 43 year old female client presents with her to the office reporting that she had a bad experience with last psychiatrist at [place] and that she has a lot of anxiety and fear for the country and everyone's safety. She states she does not feel depressed just anxious and fearful. She is tearful throughout the visit. She states she does not believe her bipolar dx. She has not started the buspar but is taking the Latuda and Escitalopram. Personal Psychiatric History: depression, anxiety, grief, PTSD Medications Effectiveness:-Medication Adherence:-Side effects: none, working good, racing thought improved, one outburst at work Previous Medication Trials: Seroquel, Risperdal, Abilify (gambling concern), prazosin, doxazosin, ativan, Latuda, escitalopram, Cymbalta, buspirone Sleep: great, 10PM-6AM Nightmares/Night terrors: intense dreams Appetite: normal, less than usual because of mounjaro Mood: depends on what is going on. Panic mess about 98% of time Sadness/hopelessness/helplessness: y es, situational Concentration: horrible Interest: none Depression Rating (10/10 being the worst): 0 /10, fearful Anger/Irritability: admits Anxiety Ratin /10 Suicidal ideation: denies Homicidal ideation: denies Psychotic Symptoms/Behaviors (hallucinations, delusions, paranoia, etc.): d enies Manic Behaviors: denies Obsessive/Compulsive Behaviors: denies Panic attacks - middle of the night Coping strategies: sleep, talking to self Goals:Social Activities: I don't have any goals Substance Use: -Caffeine - a lot -Nicotine-cigarettes .5 PPD -Alcohol - denies -Marijuana - denies -Other Substances - denies Harm to self or others/Suicide attempts: n one Previous counseling/therapy: saw therapist, would like referral Hospitalizations: in past, last one she was in 20's Legal History: denies Personal Social History: , youngest child Educational History: GED, some college Occupational History: [employer] service: denies Marital status: Children (name, age, who they live with): 2 girls, 25, 19 Family Psychiatric History: see below Personal Medical History: DM, asthma head injury?: denes Personal Surgical History: right wrist repair Family Medical/Surgical History: Father: alive, Diabetic Neuropathy Arthritis; Mother: alive, Diabetic HTN Obese Siblings: , car accident- Bipolar disorder1 sister(s) . 2 daughter(s) - healthy. drug and alcohol addiction is strong in my family Mom- BPD and suicidal tendencies; she tried to commit suicide 3 times Sister- bipolar disorder, substance use Daughter- bipolar disorder Maternal Uncle- major depression Youngest daughter OCD anxiety. I nterim History: reports doing good. Denies side effects. Was feeling tired, lowered gabapentin dose after visit with Dr. Hoyt. Sleeping fine. Appetite gained a few pounds. Depression 0/10, anxiety significantly better. Denies Si/HI. Does not feel that medications need adjusted. * ROS: * PSYCH ROS2: Elevated mood symptoms D enies. m ood swings D enies. T houghts of self harm D enies. D enies H omicidal thoughts. H yperactivity?Denies. I nattention D enies. P aranoia D enies. D ifficulty concentrating Denies. s leeping more than usual D enies. D enies A nxiety. D enies A uditory/visual hallucinations. D enies D elusions. D enies D epressed mood. D enies D ifficulty sleeping. D enies E ating disorder. D enies L oss of appetite. Denies M ental or Physical abuse. D enies S tressors. D enies S ubstance abuse. D enies S uicidal thoughts. * Medical History: * Surgical History: w rist (R) age 15 * Hospitalization/Major Diagno stic Procedure: m ental health multiple times child * Family History: F [...] Maternal Uncle- major depression Youngest daughter OCD anxiety Sister . * Social History: P rimary Social History: L iving Arrangement L iving Arrangement: I ndependent Living, I s this a supportive environment? Y es. A lcohol Use A lcohol Use Frequency: N ever. I llicit Substance Usage I llicit Substance Usage: N o. E mployment Status E mployment Status:?Employed [employer]. S dilan Question Alcohol Screening H ow may times in the past year have you had (4 for women, or 5 for men) or more drinks in a day? 0 . * Medications: T akingMounjaro 10 MG/0.5ML Solution [...] 1 tablet Orally Twice a day Gabapentin 100 MG Capsule 1 capsule Orally FOUR TIMES A DAY , Notes to Pharmacist: DOSE CHANGE 07/20/24Taking Mounjaro 10 MG/0.5ML Solution Auto-injector 10 mg [...] tablet Orally Twice a day Taking Gabapentin 100 MG Capsule 1 capsule Orally FOUR TIMES A DAY , Notes to Pharmacist: DOSE CHANGE 07/20/24 Objective: * Vitals: * Examination: G eneral Examination: Mental Status Exam A ppearance telephone encounter.Motor Activity N ormal Gait, Goal DirectedEye contact telephone encounterAttitude and Behavior C ooperative, ReceptiveMood S table, EuthymicAffect B road/FullSpeech A ppropriate , Spontaneous, Appropriate VolumeThought Process C oherent and Goal Directed, LogicalHallucinations D eniesThought Content A ppropriateDelusions N one Evident or IdentifiedSuicidal Ideation D enies Current Thoughts/Plans, Ideation History, History of self injurous behaviourHomicidal Ideation D enies Current IntentInsight A ppropriate, FairJudgement A ppropriateSensorium and Cognition A lertOriented to P erson, Place, Time, SituationMemory I mmediate, Recent, Remote, IntactAttention and Concentration N o DeficitsFund of Knowledge F air. Assessment: * Assessment: 1. G eneralized anxiety disorder - F41.1 (Primary) 2 . P TSD (post-traumatic stress disorder) - F43.10 3 . M ajor depression - F32.9 Past failed trials include S eroquel and risperdal both ineffective or adverse effects; Abilify stopped due to gambling concerns, Past trials of prazosin, doxazosin, clonidine, hydroxyzine, Xanax, diazepam, Klonopin and propranolol ineffective. Plan: * Treatment: 2. M ajor depression Continue Escitalopram Oxalate Tablet, 20 MG, 1 tablet, Orally, at night, 30 days, 30, Refills 3.? * Procedure Codes: * Follow Up: 3 Months (Reason: f/u anxiety) * * Sign off status: Completed true * Provider: Zak Leyva APRN-C Date: 0 07/26/2024 Generated for Shonsalazar levy/Soila/eTransmitting on: 0 08/09/2024 04:36 PM CDT History and Physical Notes * HPI (History of Present Illness) Category Sub-Category Detail Notes Category Not es Interim History reports lincoln carreon. Denies side effects. Was feeling tired, lowered gabapentin dose after visit with Dr. Hoyt. Sleeping fine. Appetite gained a few pounds. Depression 0/10, anxiety significantly better. Denies Si/HI. Does not feel that medications need adjusted. Depression Screening PHQ-9 Little interest or pleasure in doing things: Not at all Feeling down, depressed, or hopeless: No t at all Trouble falling or staying asleep, or sl eeping too much: Not at all Feeling tired or having little energy: S everal days Poor appetite or overeating: Several day s Feeling bad about yourself o r that [...] some way: Not at all Total Score: 3 Interpretation: Minimal Depression Summary Summary: History of Presenting Illness: 43 year old female client presents with her to the office reporting that she had a bad experience with last psychiatrist at [place] and that she has a lot of anxiety and fear for the country and everyone's safety. She states she does not feel depressed just anxious and fearful. She is tearful throughout the visit. She states she does not believe her bipolar dx. She has not started the buspar but is taking the Latuda and Escitalopram. Personal Psychiatric History: depression, anxiety, grief, PTSD Medications Effectiveness:-Medication Adherence:-Side effects: none, working good, racing thought improved, one outburst at work Previous Medication Trials: Seroquel, Risperdal, Abilify (gambling concern), prazosin, doxazosin, ativan, Latuda, escitalopram, Cymbalta, buspirone Sleep: great, 10PM-6AM Nightmares/Night terrors: intense dreams Appetite: normal, less than usual because of mounjaro Mood: depends on what is going on. Panic mess about 98% of time Sadness/hopelessness/helplessness: yes, situational Concentration: horrible Interest: none Depression Rating (10/10 being the worst): 0/10, fearful Anger/Irritability: admits Anxiety Ratin /10 Suicidal ideation: denies Homicidal ideation: denies Psychotic Symptoms/Behaviors (hallucinations, delusions, paranoia, etc.): denies Manic Behaviors: denies Obsessive/Compulsive Behaviors: denies Panic attacks - middle of the night Coping strategies: sleep, talking to self Goals:Social Activities: I don't have any goals Substance Use: -Caffeine - a lot -Nicotine-cigarettes .5 PPD -Alcohol - denies -Marijuana - denies -Other Substances - denies Harm to self or others/Suicide attempts: none Previous counseling/therapy: saw therapist, would like referral Hospitalizations: in past, last one she was in 20's Legal History: denies Personal Social History: , youngest child Educational History: GED, some college Occupational History: [employer] service: denies Marital status: Children (name, age, who they live with): 2 girls, 25, 19 Family Psychiatric History: see below Personal Medical History: DM, asthma head injury?: denes Personal Surgical History: right wrist repair Family Medical/Surgical History: Father: alive, Diabetic Neuropathy Arthritis; Mother: alive, Diabetic HTN Obese Siblings: , car accident- Bipolar disorder1 sister(s) . 2 daughter(s) - healthy. drug and alcohol addiction is strong in my family Mom- BPD and suicidal tendencies; she tried to commit suicide 3 times Sister- bipolar disorder, substance use Daughter- bipolar disorder Maternal Uncle- major depression Youngest daughter OCD anxiety. Examination Category Sub-Category Detail Notes Category Not es General Examination Mental Status Exam Appearance: te lephone encounter. Motor Activity: Normal Gait, Goal Direct ed Eye contact: telephone encounter Attitude and Behavior: Cooperative, Rece ptive Mood: Stable, Euthymic Affect: Broad/Full Speech: Appropriate , Spontaneous, Appro priate Volume Thought Process: Coherent and Goal Direc emily, Logical Hallucinations: Denies Thought Content: Appropriate Delusions: None Evident or Identified Suicidal Ideation: Denies Cu rrent Thoughts/Plans, Ideation History, History of self injurous behaviour Homicidal Ideation: Denies Current Inten t Insight: Appropriate, Fair Judgement: Appropriate Sensorium and Cognition: Alert Oriented to: Person, Place, Time, Situat ion Memory: Immediate, Recent, Remote, Intac t Attention and Concentration: No Deficits Fund of Knowledge: Fair
--- OUTSIDE RECORDS SUMMARY | 2024-08-09 16:37 | XMS_ITS | Patient Health Record ---
Author Organization 1 OF Erika self [facility] Address [address] [place] [address] Care Team Providers Care Measurement And Sensing Technician Name Role Phone Saida Olivera Primary Care Provider UnavailJackie Jasmine Unavailable [phone] Allergies No Known Allergies Reason For Referral No Information Medications Medication SIG (Take, Route, Fr equency, Duration) Notes Start Date End Date Status Metoprolol Succinate ER Active Mounjaro Active Cymbalta Active Gabapentin Active Lisinopril Active Escitalopram Oxalate Active Nexplanon Active Social History Tobacco Use: Social History Observation Description Date Details (start date - stop date) Current Smoker NA - NA Tobacco Control (Standard) Question Answer Notes Tobacco use: Current smoker Problems Problem Type SNOMED Code ICD Code Onset Dates Problem Status W/U Status Risk Notes Problem [id number] Type 2 diabetes mellitus with other diabetic neurological complication (E11.49) Active confirmed Vital Signs Height 71 in 02/13/2024 Weight 333 lbs 02/13/2024 BMI 46.44 kg/m2 02/13/2024 Encounters Encounter Location Date Provider Diagnosis 1 OF Erika Magana [facility] [address] [place] [address] 02/13/2024 Jackie Contreras Blister of second to e S90.426A ; Type 2 diabetes mellitus with other diabetic neurological complication E11.49 ; Xerosis of skin L85.3 ; Callus of foot L84 ; Right foot pain M79.671 and Left foot pain M79.672 1 OF Erika Magana [facility] [address] [address] 02/10/2024 Jackie Contreras Assessments Encounter Date Diagnosis (ICD Code) Assessment Notes Treatment Notes Treatment Clinical Notes Section Notes 02/13/2024 Type 2 diabetes mellitus with other [...] regarding diabetic foot care was dispensed 02/13/2024 Blister of second toe (ICD-10 - [...] will call with any further issues. 02/13/2024 Xerosis of skin (ICD-10 - L85.3) She purchased at [employer] lotion and can apply this daily. 02/13/2024 Callus of foot (ICD-10 - L84) Considering the associated comorbidities and physical exam findings today, this patient is at substantial risk of developing serious foot complications in the absence of regular and professional palliative foot care. 02/13/2024 Right foot pain (ICD-10 - M79.671) 02/13/2024 Left foot pain (ICD-10 - M79.672) Plan Of Treatment Next Appt Details Provider Name:Jackie Contreras, 02/11/2025 09:00:00 AM, [address] [place], [address], Insurance Providers Payer Name Payer Address Payer Phone Subscriber Number Group Number Insured Name Patient Relationship to Insured Coverage Start Date Coverage End Date [facility] [address] [place] [address] [id number] Derek Stevenson Self - patient is the insured Medical (General) History Medical History History ICD Code asthma depression Diabetes High Blood Pressure shingles
--- OUTSIDE RECORDS SUMMARY | 2024-08-09 16:37 | XMS_ITS ---
Author Organization [facility] Address [address] [place] [address] Care Team Providers Care Structural Engineer Name Role Phone Corey Harevy Primary Care Provider [phone] Kristen Ross Unavailable Allergies No Known Allergies REASON FOR VISIT lump on right arm; pt of Dr. Avila Medications Medication SIG (Take, Route, Frequency, Duration) Notes Start Date End Date Status Gabapentin 100 MG 1 capsule Orally FOU R TIMES A DAY for 30 days DOSE CHANGE 07/20/24 Active Mounjaro 10 MG/0.5ML 10 mg Subcutaneous weekly Active Latuda 60 MG 1 tablet with food Orally at night for 30 days Active busPIRone HCl 10 MG 1 tablet Orally Twic e a day for 30 days Active Escitalopram Oxalate 20 MG 1 tablet Orally at night Active Metoprolol Tartrate 50 MG 1 tablet with food Orally Twice a day for 30 day(s) Active Lisinopril 10 MG 1 tablet Orally Once a day Active Lurasidone HCl 40 MG 1 tablet in the evening with food Orally Once a day for 30 days Active Social History Tobacco Use: Social History Observation Description Date Details (start date - stop date) Current Smoker NA - NA Sex Assigned At : Social History Observation Description Sex Assigned At Female Tobacco Control (Standard) Question Answer Notes Tobacco use: Current smoker How often do you smoke cigarettes? Some days, bu t not every day Additional Findings: Tobacco user e-cigarette Vital Signs Weight 336 lb 2 oz lbs 07/25/2024 BMI 46.87 kg/m2 07/25/2024 Blood pressure systolic 126 mm Hg 07/26/19 25 Blood pressure diastolic 86 mm Hg 025 Heart Rate 81 /min 07/25/2024 Oximetry 97 % 07/25/2024 Temperature 98.0 degrees Fahrenheit 07/26/19 25 Height 71 in 07/25/2024 Respiratory Rate 16 /min 07/25/2024 Encounters Encounter Location Date Provider Diagnosis [address] [address] 07/25/2024 Kristen Ross Nicotine dependence, unspecified, uncomplicated F17.200 ; Soft tissue mass M79.9 and Over weight E66.3 Assessments Encounter Date Diagnosis (ICD Code) Assessment Notes Treatment Notes Treatment Clinical Notes Section Notes 07/25/2024 Nicotine dependence, unspecified, uncomplicated (ICD-10 - F17.200) 07/25/2024 Soft tissue mass (ICD-10 - M79.9) 07/25/2024 Over weight (ICD-10 - E66.3) Plan Of Treatment Pending Test Test Name Order Date Ultrasound: Right upper extremity 2024 Next Appt Details Follow Up: 4 Weeks, Reason: Progress Notes * Nate GALVEZDevB:1980 ( 44 yo F)Acc No.[id number]:07/25/2024 Progress Notes Patient: Derek BAY Provider: Marlo Ross, MSN, [employer] RENTAL DELIVERER, [employer], [employer] :1980 A ge:44 Y S ex:Female Date:07/25/2024 Address: [facility] Pcp:Corey Harvey 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 Avila * HPI: I nterim History: Emergency room visit N o. W as hospitalized N o.? D epression Screening: PHQ-9 L ittle interest [...] 3 , I nterpretation M inimal Depression. I ntervention D epression Screening Findings?Negative. P reventative Health and Wellness follow-up: Action Plans for Clinical Quality Measures: A dult BMI and follow-up: O ther (see notes). BMI nutrition discussed, B reast Cancer Screening: D iscussed need for breast cancer screening. Patient declined., C ervical Cancer Screening: D iscussed need for cervical cancer screening. Patient declined., C olorectal Cancer Screening: D iscussed need for colorectal cancer screening. Patient declined., T obacco Screening and Cessation: O ther (see notes). Tobacco Cessation reviewed. . C SSRS Interpretation and Follow Up Plan: CSSRS Interpretation and Follow Up Plan C SSRS Screen documented using SF Y es, R isk Disposition from L ow - No Follow Up Plan Required, F ollow Up Plan N o Follow Up Plan required at this time., T imeframe of Screening T jelena.? S creening: [place] Suicide Severity Rating Scale (LF) D o you want to initiate with S creener form, 1 . Wish to be : Have you wished you were or wished you could go to sleep and not wake up? N o, 2 . Suicidal Thoughts: Have you actually had any thoughts of killing yourself? N o, 6 . Suicide Behavior Question: Have you ever done anything,started to do anything, or prepared to end your life? N o, I nterpretation: L ow Risk. S ummary: Accompanied by lump on the right upper arm tender to touch, 0.5cm x 0.5cm denies any trauma, no bruising noted. * ROS: G eneral/Constitutional: Denies C hange in appetite. D enies C hills. D enies F atigue. D enies F ever. D enies H eadache. D enies W eight loss.? R espiratory: Denies D yspnea. C ardiovascular: Denies E sydni. D enies C hest pain. D enies?Claudication. G astrointestinal: Denies A bdominal pain. D enies N ausea. G enitourinary: urinary problems D enies. M usculoskeletal: Patient denies m usculoskeletal concerns. S kin: Admits N therese(s). D enies R jose. * Medical History: * Surgical History: w [...] anxiety Sister . * Social History: P [facility] Social History: L iving Arrangement L iving Arrangement: I ndependent Living, I s this a supportive environment? Y es. A lcohol Use A lcohol Use Frequency: N ever. I llicit Substance Usage I llicit Substance Usage: N o. 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 S dilan Question Alcohol Screening H ow may times in the past year have you had (4 for women, or 5 for men) or more drinks in a day? 0 . T obacco Use: T obacco Control (Standard) T obacco use: C urrent smoker, H ow often do you smoke cigarettes? S ome days, but not every day, A dditional Findings: Tobacco user e -cigarette. D rugs/Alcohol: D rugs H ave you used drugs other than those for medical reasons in the past 12 months??No. D o you drink alcohol?: No. H ousehold: H ousehold M arital status: m arried, N umber of adults in household: 2 . M iscellaneous: M ethod of learning P referred method of learning: R eading,Discussion,Demonstration,Hearing,Other. * Medications: T akingMounjaro 10 MG/0.5ML Solution [...] DAY , Notes to Pharmacist: DOSE CHANGE 07/20/24Medication List reviewed and reconciled with the patientTaking Mounjaro 10 MG/0.5ML Solution Auto-injector 10 mg [...] DAY , Notes to Pharmacist: DOSE CHANGE 07/20/24Medication List reviewed and reconciled with the patient * Allergies: N .K.D.A.no[Allergies Verified] Objective: * Vitals: I nitials: LL, Wt:336 lb 2 oz, Ht: 71, BMI:46.87, BP:126/86, HR:81, Oxygen sat %:97, Temp:98.0, RR:16, LMP:declined, Pain scale:0. * Examination: G eneral Examination: GENERAL APPEARANCE: a lert, oriented, well developed, well nourished, in no acute distress. EYES: P ERRLA, sclera and conjunctiva clear. NECK/THYROID: n o cervical lymphadenopathy, no thyromegaly.? SKIN: R IGHT UPPER ARM,- soft nodule, 0.5 cm x 0.5cm, no drainage, no erythema. HEART: r egular rate and rhythm, no murmurs. LUNGS: r espirations regular and easy, clear to auscultation bilaterally. ABDOMEN: b owel sounds present, soft, nontender, nondistended, no masses palpable, no organomegaly . PSYCH: f ull range of affect/positive mood, good eye contact, speech clear, no auditory or visual hallucinations, thought content without suicidal ideation or delusions. Assessment: * Assessment: 1. N icotine dependence, unspecified, uncomplicated - F17.200 2 . S oft tissue mass - M79.9 (Primary) 3 . O kelvin weight - E66.3 Plan: * Treatment: * Recommended Wellness and Pre vention Guidelines: * S tatus A lert L ast Done N ext Due A ction Taken N ONCOMPLIANT B reast cancer screening - 0 07/25/2024 - N ONCOMPLIANT C ervical cancer screening - 0 07/25/2024 - N ONCOMPLIANT H IV screening - 0 07/25/2024 - * Procedure Codes: 3 008F BODY MASS INDEX DOCD * Preventive Medicine: Counseling: S MOKING: P atient counselled on the dangers of tobacco use and urged to quit. . . C are goal follow-up plan: B ND management provided Y es, Felipe celaya Normal BMI Follow-up L ifestyle education regarding diet. * Follow Up: 4 Weeks * * Sign off status: Completed true * Provider: Marlo Ross, MSN, [employer]ENT[employer] DELIVERER, [employer], [employer] Date: 0 07/25/2024 Generated for Printing/Faxing/eTransmitting on: 0 08/09/2024 04:37 PM CDT History [...] all Total Score: 3 Interpretation: Minimal Depression Intervention Depression Screening Findings: N egative Screening [place] Suicide Sev erity Rating Scale (LF) Do [...] end your life?: No Interpretation:: Low Risk Preventative Health and Wellness follow-up Action Plans for Clinical Quality Measures: Adult BMI and follow-up:: Other (see notes). BMI nutrition discussed . Breast Cancer Screening:: Di scussed need for breast cancer screening. Patient declined. Cervical Cancer Screening:: Discussed need for cervical cancer screening. Patient declined. Colorectal Cancer Screening: : Discussed need for colorectal cancer screening. Patient declined. Tobacco Screening and Cessation:: Other (see notes). Tobacco Cessation reviewed CSSRS Interpretation and Follow Up Plan CSSRS Interpretation and Follow Up Plan CSSRS Screen documented using SF: Yes Risk Disposition from SF: Low - No Follo w Up Plan Required Follow Up Plan: No Follow Up Plan requir ed at this time. Timeframe of Screening: Today Examination Category Sub-Category Detail Notes Category Not es General Examination GENERAL APPEARANCE: alert, o riented, well developed, well nourished, in no acute distress EYES: PERRLA, sclera and c onjunctiva clear NECK/THYROID: no cervical lymphade nopathy, no thyromegaly HEART: regular rate and rhy thm, no murmurs LUNGS: respirations regular and easy, clear to auscultation bilaterally ABDOMEN: bowel sounds present , soft, nontender, nondistended, no masses palpable, no organomegaly SKIN: RIGHT UPPER ARM,- so ft nodule, 0.5 cm x 0.5cm, no drainage, no erythema PSYCH: full range of affect /positive mood, good eye contact, speech clear, no auditory or visual hallucinations, thought content without suicidal ideation or delusions
--- OUTSIDE RECORDS SUMMARY | 2024-08-09 16:37 | XMS_ITS | Patient Health Record ---
Author Organization [facility] Address [address] [place] [address] Care Team Providers Care Power Wood Sawyer Name Role Phone Corey Harvey Primary Care Provider [phone] Kristen Ross Unavailable [phone] Mary Pulido Unavailable [phone] Idalmis Leyva Unavailable [phone] Allergies No Known Allergies Results Component Value Reference Range Notes Hemoglobin A1c CLIA Waived Reviewed date:05/25/2024 02:23:26 PM Interpretation: Performing Lab: Notes/Report: Hemoglobin A1c 7.1 4.0 - 6.4 % Reason For Referral Reason LEFT NECK AND SHOULD ER PAIN AFTER INJURY TWO MONTHS AGO Diagnosis 1 Cervicalgia (M54.2) Referral Organization [facility] Referring Provider First Name Corey Referring Provider Last Name Wes Referring Provider Speciality Internal M edicine Referred Provider Specialty Physical The rapist General Notes Idalmis Valdovinos 0 07/04/2024 01:24:02 PM >referral to Physical Therapy. Letter sent, Idalmis Valdovinos 07/06/2024 09:04:39 AM >First referral declined due to insurance. New referral sent. New letter sent. Clinical Notes Janusz Teague py, [address] [place] [address], p: [phone], f: [phone] Referral Priority Routine Reason 43 year old female c lient with significant anxiety/depression needs therapy Diagnosis 1 PTSD (post-traumatic stress disorder) (F43.10) Diagnosis 2 Generalized anxiety disorder (F41.1) Diagnosis 3 Major depression (F3 2.9) Referral Organization [facility] Referring Provider First Name Idalmis Referring Provider Last Name Gordon Referring Provider Speciality Psychiatry Referred Provider Specialty Behavioral [facility] Referral Priority Routine Medications Medication SIG (Take, Route, Frequency, Duration) Notes Start Date End Date Status busPIRone HCl 10 MG 1 tablet Orally Twic e a day for 30 days Active Gabapentin 100 MG 1 capsule Orally FOU R TIMES A DAY for 30 days DOSE CHANGE 07/20/24 Active Propranolol HCl 10 MG 1 tablet on an empty stomach Orally three times a day for 30 days As needed Active Lurasidone HCl 40 MG 1 tablet in the evening with food Orally Once a day for 30 days Active busPIRone HCl 10 MG 1 tablet Orally Twic e a day for 30 days Active Mounjaro 10 MG/0.5ML 10 mg Subcutaneous weekly Active Escitalopram Oxalate 20 MG 1 tablet Orally at night for 30 days Active Lisinopril 10 MG 1 tablet Orally Once a day Active Latuda 60 MG 1 tablet with food Orally at night for 30 days Active Metoprolol Tartrate 50 MG 1 tablet with food Orally Twice a day for 30 day(s) Active Social History Tobacco Use: Social History [...] Problem Status W/U Status Risk Notes Problem Tobacco user (793361048) Nicotine dependence, unspecified, uncomplicated (F17.200) Active confirmed Problem Depressed bipolar I disorder (18472720) Bipolar disorder, current episode depressed, mild or moderate severity, unspecified (F31.30) 07/05/19 21 Active confirmed MDQ 10/13 with past history reported since age 19. Problem Generalized anxiety disorder (31188348) Generalized anxiety disorder (F41.1) Active confirmed DIONI-7 15 Problem Cervicalgia (48451271) Cervicalgia (M54.2) Active confirmed Problem Hypertension (65153788) Hypertension (I10) Active confirmed Problem Major depression (822478572) Major depression (F32.9) Active confirmed Problem Posttraumatic stress disorder (06676451) PTSD (post-traumatic stress disorder) (F43.10) 07/04/19 21 Active confirmed Problem Type II diabetes mellitus without complication (283748749) Diabetes (E11.9) Active confirmed Problem Overweight (373764162) Over weight (E66.3) Active confirmed Problem Diabetic peripheral neuropathy (669884614) Diabetic peripheral neuropathy (E11.42) Active confirmed Problem Nicotine use disorder (1790920819) Nicotine use disorder (F17.200) Active confirmed Problem Adjustment disorder with depressed mood (90340981) Grief reaction (F43.21) 01/06/20 Active confirmed aunt and grandson November 2020 Problem Body mass index 40+ - morbidly obese (725579348) Body mass index [BMI] 50.0-59.9, adult (Z68.43) Active confirmed Problem Exacerbation of asthma (754747472) Asthma exacerbation, mild (J45.901) Active confirmed Vital Signs Heart Rate 81 /min 07/25/2024 Temperature 98.0 degrees Fahrenheit 07/25/2024 Respiratory Rate 16 /min 07/25/2024 Blood pressure diastolic 86 mm Hg 07/25/2024 Oximetry 97 % 07/25/2024 Height 71 in 07/25/2024 Blood pressure systolic 126 mm Hg 07/25/2024 Weight 336 lb 2 oz lbs 07/25/2024 BMI 46.87 kg/m2 07/25/2024 Encounters Encounter Location Date Provider Diagnosis [address] [place] [address] 05/25/2024 Corey Harvey Cervicalgia M54.2 ; Left shoulder pain M25.512 ; Diabetic peripheral neuropathy E11.42 ; Diabetes E11.9 ; Hypertension I10 ; PTSD (post-traumatic stress disorder) F43.10 and Bipolar disorder, current episode depressed, mild or moderate severity, unspecified F31.[address] [place] [address] 06/07/2024 Corey Harvey Cervicalgia M54.2 ; Diabetes E11.9 ; Hypertension I10 ; Bipolar disorder, current episode depressed, mild or moderate severity, unspecified F31.30 ; PTSD (post-traumatic stress disorder) F43.10 ; Diabetic peripheral neuropathy E11.42 and Generalized anxiety disorder F41.[address] [address] 06/20/2024 Mary Ashok Upper respiratory infection J06.[address] [address] 06/26/2024 Corey Harvey Acute bronchitis J20.9 ; Asthma exacerbation, mild J45.901 ; Diabetes E11.9 ; Hypertension I10 and Nicotine dependence, unspecified, uncomplicated F17.[address] [address] 07/02/2024 Idalmis Leyva PTSD (post-traumatic stress disorder) F43.10 ; Generalized anxiety disorder F41.1 and Major depression F32.[address] [place] [address] 07/20/2024 Corey Harvey Over weight E66.3 an d Fatigue R53.83 [facility] [address], [place] [address] 07/25/2024 Kristen Ross Nicotine dependence, unspecified, uncomplicated F17.200 ; Soft tissue mass M79.9 and Over weight E66.[address] [address] 07/26/2024 Idalmis Leyva Generalized anxiety disorder F41.1 ; PTSD (post-traumatic stress disorder) F43.10 and Major depression F32.9 [facility] [address] [place] [address] 06/26/2024 Corey Harvey [address] [address] 07/03/2024 Idalmis Leyva [address] [address] 07/04/2024 Idalmis Leyva [address] [address] 07/18/2024 Corey Harvey [facility] [place] [address] 07/20/2024 Idalmis Gordon Over weight E66.3 ; Bipolar disorder, current episode depressed, mild or moderate severity, unspecified F31.30 ; Generalized anxiety disorder F41.1 and Major depression F32.9 Assessments Encounter Date Diagnosis (ICD Code) Assessment Notes Treatment Notes Treatment Clinical Notes Section Notes 05/25/2024 Cervicalgia (ICD-10 - M54.2) STRAIN VS RADICULOPATHY 06/26/2024 Acute bronchitis (ICD-10 - J20.9) 06/26/2024 Asthma exacerbation, mild (ICD-10 - J45.901) 07/02/2024 Generalized anxiety disorder (ICD-10 - F41.1) Past failed trials include Seroquel and risperdal both ineffective or adverse effects; Abilify stopped due to gambling concerns, Past trials of prazosin, doxazosin, clonidine, hydroxyzine, Xanax, diazepam, Klonopin and propranolol ineffective. 07/02/2024 PTSD (post-traumatic stress disorder) (ICD-10 - F43.10) Past failed trials include Seroquel and risperdal both ineffective or adverse effects; Abilify stopped due to gambling concerns, Past trials of prazosin, doxazosin, clonidine, hydroxyzine, Xanax, diazepam, Klonopin and propranolol ineffective. 07/20/2024 Bipolar disorder, current episode depressed, mild or moderate severity, unspecified (ICD-10 - F31.30) 06/07/2024 Cervicalgia (ICD-10 - M54.2) IMPROVING. AWAIT PT 06/07/2024 Diabetes (ICD-10 - E11.9) WELL CONTROLLED 06/20/2024 Upper respiratory infection (ICD-10 - J06.9) Dsicussed symptomatic treatment, reports symptoms mild and tolerable 07/20/2024 Over weight (ICD-10 - E66.3) 07/20/2024 Fatigue (ICD-10 - R53.83) LOWER GABAPENTIN FROM 300 MG BID TO 100 MG QID (1 IN AM AND 3 AT NIGHT). IF STILL TIRED WILL LOWER BUSPAR TO 1/2 TAB IN THE AM. IF STILL TIRED AFTER ANOTHER WEEK WILL CONTACT PSYCH FOR MED ADJUSTMENT. 07/20/2024 Over weight (ICD-10 - E66.3) 07/25/2024 Nicotine dependence, unspecified, uncomplicated (ICD-10 - F17.200) 07/25/2024 Soft tissue mass (ICD-10 - M79.9) 07/26/2024 Generalized anxiety disorder (ICD-10 - F41.1) [...] hydroxyzine, Xanax, diazepam, Klonopin and propranolol ineffective. 05/25/2024 Left shoulder pain (ICD-10 - M25.512) STRAIN VS RADICULOPATHY 05/25/2024 Diabetic peripheral neuropathy (ICD-10 - E11.42) 07/26/2024 Major depression (ICD-10 - F32.9) Past failed trials include Seroquel and risperdal both ineffective or adverse effects; Abilify stopped due to gambling concerns, Past trials of prazosin, doxazosin, clonidine, hydroxyzine, Xanax, diazepam, Klonopin and propranolol ineffective. 07/25/2024 Over weight (ICD-10 - E66.3) 06/26/2024 Diabetes (ICD-10 - E11.9) LOW CARB DIET WHILE TAKING PREDNISONE, THEN RESUME DIABETIC DIET. 06/07/2024 Hypertension (ICD-10 - I10) CONTROLLED 07/20/2024 Generalized anxiety disorder (ICD-10 - F41.1) 07/02/2024 Major depression (ICD-10 - F32.9) Past failed trials include Seroquel and risperdal both ineffective or adverse effects; Abilify stopped due to gambling concerns, Past trials of prazosin, doxazosin, clonidine, hydroxyzine, Xanax, diazepam, Klonopin and propranolol ineffective. 07/20/2024 Major depression (ICD-10 - F32.9) 06/26/2024 Hypertension (ICD-10 - I10) 05/25/2024 Diabetes (ICD-10 - E11.9) 06/07/2024 Bipolar disorder, current episode depressed, mild or moderate severity, unspecified (ICD-10 - F31.30) DOING MUCH BETTER. 05/25/2024 Hypertension (ICD-10 - I10) 06/07/2024 PTSD (post-traumatic stress disorder) (ICD-10 - F43.10) 06/07/2024 Diabetic peripheral neuropathy (ICD-10 - E11.42) 06/26/2024 Nicotine dependence, unspecified, uncomplicated (ICD-10 - F17.200) 05/25/2024 PTSD (post-traumatic stress disorder) (ICD-10 - F43.10) 06/07/2024 Generalized anxiety disorder (ICD-10 - F41.1) 05/25/2024 Bipolar disorder, current episode depressed, mild or moderate severity, unspecified (ICD-10 - F31.30) 05/25/2024 Other PRADEEP SIGNED FOR PRIOR MD'S AND ED VISIT 04/202406/20/2024 Other Patient may self-administer their own medications or may self-administer their own oral medications per [place] Protocol. 06/26/2024 Other Learning About the Safe Use of Antibiotics material was discussed. Pt was educated on use of antibiotic medication including dosing, side effects, adverse effects and anticipated response. Pt was also educated on importance of completing full course of treatment as ordered. Patient voiced understanding of all. HOME COVID TEST NEGATIVE IN OFFICE 07/02/2024 Other Acampo agremen to continue regimen. Past failed trials include Seroquel and risperdal both ineffective or adverse effects; Abilify stopped due to gambling concerns, Past trials of prazosin, doxazosin, clonidine, hydroxyzine, Xanax, diazepam, Klonopin and propranolol ineffective. Plan Of Treatment Pending Test Test Name Order Date Ultrasound: Right upper extremity 2024 Insurance Providers Payer Name Payer Address Payer Phone Subscriber Number Group Number Insured Name Patient Relationship to Insured Coverage Start Date Coverage End Date [facility] [address] [place] [address] [id number] Derek Stevenson Self - patient is the insured [employer] [address] [place] [address] [id number] Derek Stevenson Self - patient is the insured 1 3 [employer] [address] [place] [address] [id number] Derek Stevenson Self - patient is the insured 1 3 Medical (General) History Medical History History ICD Code asthma ptsd anxiety bipolar Surgical History Surgery Date(Month/Year) wrist (R) age 15 Hospitalization History Reason Date(Month/Year) child mental health multiple times
[2024-08-09 16:38] VITALS: BP 148/84; PULSE 82; RESP 17; TEMP 36.4; O2SAT 100
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
[2024-08-09] MEDS: CYCLOBENZAPRINE HCL 10 MG TABLET PO (17:43)
[2024-08-09] MEDS: ACETAMINOPHEN 500 MG TABLET 1000 MG PO (17:43)
[2024-08-09 17:58] LABS: Basophils Percent Auto 0.4 % (0.2-1.2); Eosinophils Absolute Auto 0.1 K/mm3 (0-0.3); Eosinophils Percent Auto 0.7 % (0-4.4); Hematocrit 47.1 % (37.0-47.0); Immature Granulocyte Absolute 0.03 K/mm3 (0.00-0.031); Immature Granulocyte Percent A 0.3 % (0-0.5); Lymphocytes Absolute Auto 2.87 K/mm3 (0.9-3.2); Lymphocytes Percent Auto 26.3 % (18.3-44.2); Mean Corpuscular HGB Conc 31.8 g/dl (32-36); Mean Corpuscular Volume 94.2 fl (80-100); Mean Platelet Volume 9.2 fl (7.4-10.4); Monocytes Absolute Auto 0.7 K/mm3 (0.1-0.6); Monocytes Percent Auto 6.2 % (2.6-8.5); Neutrophils Absolute Auto 7.2 K/mm3 (1.3-6.7); Neutrophils Percent Auto 66.1 % (45.5-73.1); Platelet Count Result 335 k/mm3 (150-375); White Blood Count 10.9 K/mm3 (4.5-10.0)
[2024-08-09 18:08] LABS: Alanine Aminotransferase 22 U/L (6-35); Albumin Level 4.6 g/dL (3.5-5.1); Alkaline Phosphatase 82 U/L (38-126); Anion Gap 11 mmol/L (4-12); Aspartate Amino Transferase 21 U/L (14-36); Bilirubin,Total 1.2 mg/dL (0.2-1.3); Blood Urea Nitrogen 12 mg/dL (7-17); Calcium 9.2 mg/dL (8.4-10.2); Carbon Dioxide 21 mmol/L (22-30); Chloride 106 mmol/L (98-107); Estimated CRCL calculation 147 ml/min; Estimated Glomerular Filt Rate > 60; Glucose 113 mg/dL (65-110); Lipase 277 U/L (23-300); Potassium 4.2 mmol/L (3.4-5.0); Sodium 138 mmol/L (137-145)
--- OUTSIDE RECORDS SUMMARY | 2024-08-09 20:46 | XMS_ITS | Encounter Summary ---
Author Organization [facility] Address [address] [place] [id number] Care Team Providers Care Rn Advanced Name Role Phone Saida Fox MD Primary Care Provider [phone] Encounter Details Date Type Department Care Team (Late st Contact Info) Description 09/29/2023 [employer] Message Enc [facility] Medical Group Family Medicine - [address], [address] [place] [id number] Saida Fox MD [address] [facility] [address] [place] [address] Control Social History Tobacco Use Types Packs/Day Years Used Date Smoking Tobacco: Former Cigarettes Q uit: 04/02/2003 Passive Smoke Exposure: Never Smokeless Tobacco: Never Alcohol Use Standard Drinks/Week Comments No 0 (1 standard drink = 0.6 oz pur e alcohol) PHQ-2 Answer Date Recorded Patient Health Questionnaire-2 Score 0 06/06/2023 Comments No Sex and Gender Information Value Date Recorded Sex Assigned at Female 04/05/2018 4:37 PM [employer] Legal Sex Female 5:16 PM CDT Gender Identity Female 04/05/2018 4:37 PM [employer] Sexual Orientation Straight 04/05/2018 4: 37 PM [employer] documented as of this encounter Progress Notes * Suzanne Chavis MA - 09/29/2023 12:20 PM CDTFrom: Derek Stevenson To: Dr. Saida Fox Sent: 09/29/2023 8:24 AM CDT Subject: Control How can I go about scheduling my iud to be removed and then get the control implant in my arm? I know the doctor said she can do both. Do you need to order the arm implant and then schedule? Can we do this right away? Please let me know what I need to do on my end. Thank you documented in this encounter Plan of Treatment Upcoming Encounters Date Type Department Care Team (Late st Contact Info) Description 08/08/2025 9:00 AM CDT Office Visit [facility] Medical [facility] Multispecialty Care - [facility] [address] [facility], [address] [place] [address] Lj Wallace MD [address] [facility] [place] [address] [place] [id number] documented as of this encounter Visit Diagnoses Not on filedocumented in this encounter Additional Health Concerns Assessment Noted Time PHQ-9 Depression Total Score: 1 04/08/20 3:12 PM [employer] documented as of this encounter Care Teams Rn Advanced Relationship Specialty Start Date End Date Saida Fox MD [address] [place] [address] [place] [id number] PCP - General FAMILY PRACTICE 04/08/23 documented as of this encounter
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
--- OUTSIDE RECORDS SUMMARY | 2024-08-09 20:46 | XMS_ITS | Encounter Summary ---
Author Organization [facility] Address [address] [place] [address] Care Team Providers Care Sales Administration Manager Name Role Phone Saida Fox MD Primary Care Provider [phone] Reason for Visit * Reason Onset Date Comments Information 08/06/2024 Encounter Details Date Type Department Care Team (Latest Contact Info) Description 08/06/2024 Verisim Message Enc [facility] Medical Group Multispecialty Care - [facility] [address] [place] [phone] Lj Wallace MD [address] [place] [address] Sleep machine serial number Social History Tobacco Use Types Packs/Day Years [...] Sex Assigned at Female 04/05/2018 4:37 PM AMMONIA BOX OPERATOR Legal Sex Female 5:16 PM CDT Gender Identity Female 04/05/2018 4:37 PM AMMONIA BOX OPERATOR Sexual Orientation Straight 04/05/2018 4: 37 PM AMMONIA BOX OPERATOR documented as of this encounter Progress Notes * Katelyn Montejo CRT - 08/08/2024 10:30 AM CDT Per Sujey with [facility] - patient will need to bring in her ResVent machine for a download since modem is not working * Katelyn Montejo CRT - 08/07/2024 7:50 AM CDT Message sent to Sujey with [facility] documented in this encounter Plan of Treatment Upcoming Encounters Date Type Department Care Team (Late st Contact Info) Description 08/08/2025 9:00 AM CDT Office Visit [facility] Medical Group Multispecialty Care - [facility] [address] [place] [address] Lj Wallace MD [address] [place] [address] documented as of this encounter Visit Diagnoses Not on filedocumented in this encounter Additional Health Concerns Assessment Noted Time PHQ-9 Depression Total Score: 2 02/21/20 24 10:56 AM CDT documented as of this encounter Care Teams Sales Administration Manager Relationship Specialty Start Date End Date Saida Fox MD [address] [place] [address] PCP - General FAMILY PRACTICE 04/08/23 documented as of this encounter
--- OUTSIDE RECORDS SUMMARY | 2024-08-09 20:46 | XMS_ITS | Encounter Summary ---
Author Organization [facility] Address [address] [place] [address] Care Team Providers Care Frame Operator Name Role Phone Saida Fox MD Primary Care Provider [phone] Encounter Details Date Type Department Care Team (Late st Contact Info) Description 11/24/2023 MyCUS Dataworkst Message Enc [facility] Family Medicine - [place] [address] [place] [address], [address] [place] [address] Saida Fox MD [address] [place], [place] [phone] Nexplanon implant Social History Tobacco Use Types Packs/Day Years [...] Sex Assigned at Female 04/05/2018 4:37 PM PROMOTIONAL DEMONSTRATOR Legal Sex Female 5:16 PM CDT Gender Identity Female 04/05/2018 4:37 PM PROMOTIONAL DEMONSTRATOR Sexual Orientation Straight 04/05/2018 4: 37 PM PROMOTIONAL DEMONSTRATOR documented as of this encounter Plan of Treatment Upcoming Encounters Date Type Department Care Team (Late st Contact Info) Description 08/08/2025 9:00 AM CDT Office Visit [facility] Multispecialty Care - [facility] [address] [place] [address] Lj Wallace MD [address] [place] [address] documented as of this encounter Visit Diagnoses Not on filedocumented in this encounter Additional Health Concerns Assessment Noted Time PHQ-9 Depression Total Score: 1 04/08/20 23 3:12 PM PROMOTIONAL DEMONSTRATOR documented as of this encounter Care Teams Frame Operator Relationship Specialty Start Date End Date Saida Fox MD [address] [place] [address] [place] [address] PCP - General FAMILY PRACTICE 04/08/23 documented as of this encounter
--- OUTSIDE RECORDS SUMMARY | 2024-08-09 20:46 | XMS_ITS | Clinical Summary ---
Author Organization [facility] Address [address] [place] [address] Care Team Providers Care Continuous Improvement Manager Name Role Phone Saida Fox MD Primary Care Provider [phone] Source Comments [facility],non-owned Affiliates and Associated Physician Practices is amultiple site organization consisting of ambulatory clinics and hospital sitesin [place], [place], [place] and [place]. This disclosure is being madepursuant to the Care Everywhere program and may not contain all information available regarding this patient. Last updated 18.[facility] Allergies No known active allergies Medications * [...] needed 6 Active Blood Glucose Monitoring Suppl ([employer] GroupUCH VERIO) w/Device KIT 9 Active empagliflozin (JARDIANCE) [...] vitamin D, ergocalciferol , (Drisdol) 1.25 MG (87974 UT) capsule TAKE 1 CAPSULE BY MOUTH EVERY WEEK DIRECTED 3 Active gabapentin (Neurontin) 800 MG tablet TAKE 1 TABLET BY MOUTH EVERY 8 HOURS NEEDED FOR 30 DAYS 3 Active HYDROcodone-ac etaminophen ([place]) 5-325 MG tablet 1 tablet as needed [...] Diagnosed Date Resolved Date No diagnosis on [place] I 12/04/201709/25 Agoraphobia with panic disorder 11/20/2016 [...] on file Legal Sex Female 5:19 PM ACTUARY MANAGER Gender Identity Not on file Sexual Orientation [...] - 115 mg/dL 09/19/2022 9:49 AM CDT [facility] Specimen Type Cap Fingerstick 2022 9:49 AM CDT [facility] Blood BLOOD SPECIMEN / Unknown 09/19/2022 9:44 AM CDT 09/19/2022 9:49 AM CDT Dalia Hodges MD LAB - POINT OF CARE ORDERABLES Final Result [facility] [address] [place] [address], [facility] [phone] from Last 3 Months or Most Recently Relevant to Health Maintenance Insurance [facility] [place] [address] Advance Directives * Full Code (Latest Code Status on File) Date Activated Date Inactivated Comments 09/18/2022 10:01 PM 09/19/2022 7:37 PM Care Teams Continuous Improvement Manager Relationship Specialty Start Date End Date Saida Fox MD [address] [place] [address], [address] [facility] [address] [place] [address] PCP - General Family Medicine 11/21/23
--- OUTSIDE RECORDS SUMMARY | 2024-08-09 20:46 | XMS_ITS | Referral Summary ---
Author Organization [facility] Address [address] [place] [address] Care Team Providers Care Custom Clothier Name Role Phone Unavailable Primary Care Provider Unavailabl e Allergies No known active allergies Medications albuterol HFA (PROVENTIL HFA,VENTOLIN HFA,PROAIR HFA) 90 mcg/actuation inhaler Inhale 2 puffs every 4 (four) hours as needed for wheezing 1 each 01/24/2022 Active Social History Tobacco Use Types Packs/Day Years Used Date Smoking Tobacco: Every Day Personal Safety Answer Date Recorded Getting School Help Needed Not on file 08/26 Comments No Sex and Gender Information Value Date Recorded Sex Assigned at Not on file Legal Sex Female 7:38 PM DESULPHURING OPERATOR Gender Identity Not on file Sexual Orientation Not on file Last Filed Vital Signs Vital Sign Reading Time Taken Comments Blood Pressure 154/90 08/24/2022 1:33 PM CDT Pulse 77 08/24/2022 1:33 PM CDT Temperature 36.4 C (97.6 F) 08/24/2022 1:33 PM CDT Respiratory Rate 20 08/24/2022 1:33 PM CDT Oxygen Saturation 97% 08/24/2022 1:33 PM CDT Inhaled Oxygen Concentration - - Weight 170.1 kg (375 lb) 08/24/2022 1:33 PM CDT Height 180.3 cm (5' 11 ) 08/24/2022 1:33 PM CDT Body Mass Index 52.3 08/24/2022 1:33 PM CDT Plan of Treatment Not on file [place] [place] [address] [place] [address]
--- OUTSIDE RECORDS SUMMARY | 2024-08-09 20:46 | XMS_ITS | Encounter Summary ---
Author Organization [facility] Address [address] [place] [address] Care Team Providers Care Dipper Operator Name Role Phone Saida Fox MD Primary Care Provider [phone] Encounter Details Date Type Department Care Team (Late st Contact Info) Description 11/04/2023 MyCZuldit Message Enc [facility] Medical Group Family Medicine - [address], [address] [place] [phone] Saida Fox MD [address] [facility] [address] [place], [place] [phone] control Social History Tobacco Use Types Packs/Day Years [...] Sex Assigned at Female 04/05/2018 4:37 PM POOL ATTENDANT Legal Sex Female 5:16 PM CDT Gender Identity Female 04/05/2018 4:37 PM POOL ATTENDANT Sexual Orientation Straight 04/05/2018 4: 37 PM POOL ATTENDANT documented as of this encounter Plan of Treatment Upcoming Encounters Date Type Department Care Team (Late st Contact Info) Description 08/08/2025 9:00 AM CDT Office Visit [facility] Medical Group Multispecialty Care - [facility] [address] [facility] [place] [address] Lj Wallace MD [facility] [address] [place] [address] documented as of this encounter Visit Diagnoses Not on filedocumented in this encounter Additional Health Concerns Assessment Noted Time PHQ-9 Depression Total Score: 1 04/08/20 3:12 PM POOL ATTENDANT documented as of this encounter Care Teams Dipper Operator Relationship Specialty Start Date End Date Saida Fox MD [address] [place] [address] [place] [address] PCP - General FAMILY PRACTICE 04/08/23 documented as of this encounter
--- OUTSIDE RECORDS SUMMARY | 2024-08-09 20:46 | XMS_ITS | Encounter Summary ---
Author Organization [facility] Address [address] [place] [address] Care Team Providers Care Master Craftsman Name Role Phone Saida Fox MD Primary Care Provider [phone] Encounter Details Date Type Department Care Team (Late Contact Info) Description 12/13/2023 Revokom Message Enc [facility] Family Medicine - [address], [address] [place] [address] [facility] Provider Test Results Social History Tobacco Use Types Packs/Day Years [...] Sex Assigned at Female 04/05/2018 4:37 PM SKI TOP TRIMMER Legal Sex Female 5:16 PM CDT Gender Identity Female 04/05/2018 4:37 PM SKI TOP TRIMMER Sexual Orientation Straight 04/05/2018 4: 37 PM SKI TOP TRIMMER documented as of this encounter Plan of Treatment Upcoming Encounters Date Type Department Care Team (Late Contact Info) Description 08/08/2025 9:00 AM CDT Office Visit [facility] Multispecialty Care - [address], [address] [place] [address] Lj Wallace MD 3 [facility] [address] [place] [address] documented as of this encounter Visit Diagnoses Not on filedocumented in this encounter Additional Health Concerns Assessment Noted Time PHQ-9 Depression Total Score: 1 04/08/20 23 3:12 PM SKI TOP TRIMMER documented as of this encounter Care Teams Master Craftsman Relationship Specialty Start Date End Date Saida Fox MD [address] [place] [address] [address] [place], [place] [id number] PCP - General FAMILY PRACTICE 04/08/23 documented as of this encounter
--- OUTSIDE RECORDS SUMMARY | 2024-08-09 20:46 | XMS_ITS | Encounter Summary ---
Author Organization [facility] Address [address] [place] [address] Care Team Providers Care Fuel Cell Binder Name Role Phone Saida Fox MD Primary Care Provider [phone] Encounter Details Date Type Department Care Team (Late st Contact Info) Description 04/26/2023 [employer] Message Enc [facility] Medical Group Family Medicine - [address], [address] [place] [address] Saida Fox MD [address] [facility] [address] [place] [address] Metformin Social History Tobacco Use Types Packs/Day Years Used Date Smoking Tobacco: Former Cigarettes Q uit: 04/02/2003 Passive Smoke Exposure: Never Smokeless Tobacco: Never Alcohol Use Standard Drinks/Week Comments No 0 (1 standard drink = 0.6 oz pur e alcohol) PHQ-2 Answer Date Recorded Patient Health Questionnaire-2 Score 0 04/08/2023 Comments No Sex and Gender Information Value Date Recorded Sex Assigned at Female 04/05/2018 4:37 PM RELIGIOUS LEADER Legal Sex Female 5:16 PM CDT Gender Identity Female 04/05/2018 4:37 PM RELIGIOUS LEADER Sexual Orientation Straight 04/05/2018 4: 37 PM RELIGIOUS LEADER documented as of this encounter Progress Notes * Suzanne Chavis MA - 04/28/2023 8:00 AM CSTFrom: Derek Stevenson To: Dr. Saida Fox Sent: 04/26/2023 9:05 PM RELIGIOUS LEADER Subject: Metformin Hi, I was wondering about the prescription for the metformin that was called in for me today. I am used to daily taking 2000 mg???s . I take 2, (500mg) tablets in the morning and 2 (500 mg) tablets in the evening. I am also on the ozempic shot. This has been helping me get my sugars under control. Please let me know if I should d rastically change my amount of metformin like this. I may need to schedule an appointment to discuss my diabetes and what changes I have made in the last few months. Please let me know what the doctor thinks I should do. Thanks GIOUS LEADER documented in this encounter Plan of Treatment Upcoming Encounters Date Type Department Care Team (Late st Contact Info) Description 08/08/2025 9:00 AM CDT Office Visit [facility] Medical Group Multispecialty Care - [address], [address] [place] [address] Lj Wallace MD [address] [place] [address] documented as of this encounter Visit Diagnoses Not on filedocumented in this encounter Additional Health Concerns Assessment Noted Time PHQ-9 Depression Total Score: 1 04/08/20 3:12 PM RELIGIOUS LEADER documented as of this encounter Care Teams Fuel Cell Binder Relationship Specialty Start Date End Date Saida Fox MD [address] [place] [address] [place] [id number] PCP - General FAMILY PRACTICE 04/08/23 documented as of this encounter
--- OUTSIDE RECORDS SUMMARY | 2024-08-09 20:46 | XMS_ITS | Encounter Summary ---
Author Organization [facility] Address [address] [place] [address] Care Team Providers Care Chief Petroleum Engineer Name Role Phone Saida Fox MD Primary Care Provider [phone] Reason for Visit * Reason Onset Date Comments Problem 06/17/2023 Encounter Details Date Type Department Care Team (Late st Contact Info) Description 06/17/2023 Indigiot Message Enc [facility] Medical Group Family Medicine - [address], [address] [place] [address] Saida Fox MD [facility] [address] [place] [address] Low blood sugar Social History Tobacco Use Types Packs/Day Years [...] Sex Assigned at Female 04/05/2018 4:37 PM BURLAP ROLL COVERER Legal Sex Female 5:16 PM CDT Gender Identity Female 04/05/2018 4:37 PM BURLAP ROLL COVERER Sexual Orientation Straight 04/05/2018 4: 37 PM BURLAP ROLL COVERER documented as of this encounter Progress Notes * Lisandra Camarena RN - 06/17/2023 2:53 PM CST Patient calling to report that she is not feeling good today. She is on ozempic 2mg/weekly and doesn't know why her bs had dropped to 75. Patient states she had a biscuit/hash brown from [employer]. Her BS was 180 earlier this morning andby 11AM had dropped to 75. Patient stated it does not drop like that normally. She has a abdirashid CGM. She was given a glucose tab by a coworker to help her BS go up. She stated ate a chicken salad and four jalepeno poppers and her BS was up to 201. Her BS went up and then went back down. She also has a glucometer with her. Her abdirashid stated she is now at 136 and her finger stick said 157. She states she feels cloudy and heavy headed today and does not feel good. No fever or chills noted. She wasn't sure if she's getting sick and hasn't been a DM for more than a year. Her last ozempic dose was last taken on 06/12/23 and her dosage was increased a month ago. Patient stated she is responding better to ozempic than trulicity. It had caused a lot of vomiting. Patient was concerned that her next ozempic shot was for Tuesday and didn't know if PCP had wanted to decrease the dose due to her low BS. Spoke with PCP and she recommended patient go down to 1mg and call back if any issues. Verbal orderwas received to refer patient to DM education. Patient stated she was not able to dial her dose down on her 2mg pen to get 1mg. New script sent. Patient has appt with PCP on 06/20/23. Opportunity given for all questions to be answered, no further needs voiced at this time. AP ROLL COVERER AP ROLL COVERER * Suzanne Chavis MA - 06/17/2023 1:49 PM CSTFrom: Derek Stevenson To: Dr. Saida Fox Sent: 06/17/2023 1:32 PM BURLAP ROLL COVERER Subject: Low blood sugar Hi, I was wondering if it???s normal to suddenly have low blood sugar numbers, when you normally are in range or running high. I don???t feel really well and am leaving work early today because my sugar was around 76 and now that I have eaten a lunch its still below 120. I am on ozempic. Does this happen sometimes? Should I be concerned? Also can the doctor refer me to an pump servicer supervisor that takes my insurance so I can learn more about how to deal with the diabetes. My old doctor was going to send me to one but my insurance changed and I had to switch doctors and never got to see the pump servicer supervisor. Thank you AP ROLL COVERER documented in this encounter Plan of Treatment Upcoming Encounters Date Type Department Care Team (Late st Contact Info) Description 08/08/2025 9:00 AM CDT Office Visit [facility] Medical Group Multispecialty Care - [facility] [address] [facility] [place] [address] Lj Wallace MD 3 [facility] [address] [place] [address] documented as of this encounter Visit Diagnoses Diagnosis Type 2 diabetes mellitus with other specified complication, without long-term current use of insulin ([facility])- Primary documented in this encounter Additional Health Concerns Assessment Noted Time PHQ-9 Depression Total Score: 1 04/08/20 23 3:12 PM BURLAP ROLL COVERER documented as of this encounter Care Teams Chief Petroleum Engineer Relationship Specialty Start Date End Date Saida Fox MD [address] [place] [address] [place] [address] PCP - General FAMILY PRACTICE 04/08/23 documented as of this encounter
--- OUTSIDE RECORDS SUMMARY | 2024-08-09 20:46 | XMS_ITS | Encounter Summary ---
Author Organization [facility] Address [address] [place] [address] Care Team Providers Care Park Warden Name Role Phone Saida Fox MD Primary Care Provider [phone] Encounter Details Date Type Department Care Team (Late Contact Info) Description 05/25/2023 CloudHashing Message Enc [facility] Family Medicine - [address], [address] [place] [address] Alea, [facility] Provider test Social History Tobacco Use Types Packs/Day Years [...] Sex Assigned at Female 04/05/2018 4:37 PM YARD DEMURRAGE CLERK Legal Sex Female 5:16 PM CDT Gender Identity Female 04/05/2018 4:37 PM YARD DEMURRAGE CLERK Sexual Orientation Straight 04/05/2018 4: 37 PM YARD DEMURRAGE CLERK documented as of this encounter Plan of Treatment Upcoming Encounters Date Type Department Care Team (Late Contact Info) Description 08/08/2025 9:00 AM CDT Office Visit [facility] Multispecialty Care - [address], [address] [place] [address] Lj Wallace MD 3 [facility] [address] [place] [address] documented as of this encounter Visit Diagnoses Not on filedocumented in this encounter Additional Health Concerns Assessment Noted Time PHQ-9 Depression Total Score: 1 04/08/20 23 3:12 PM YARD DEMURRAGE CLERK documented as of this encounter Care Teams Park Warden Relationship Specialty Start Date End Date Saida Fox MD [address] [place] [id number] PCP - General FAMILY PRACTICE 04/08/23 documented as of this encounter
--- OUTSIDE RECORDS SUMMARY | 2024-08-09 20:46 | XMS_ITS | Encounter Summary ---
Author Organization [facility] Address [address] [place] [address] Care Team Providers Care Heat Treat Puller Name Role Phone Saida Fox MD Primary Care Provider [phone] Encounter Details Date Type Department Care Team (Latest Contact Info) Description 08/06/2024 Scan HEALTH INFO SRVCS Scanned, Doc Med Group Social History Tobacco Use Types Packs/Day Years [...] Sex Assigned at Female 04/05/2018 4:37 PM ICE CREAM SERVER Legal Sex Female 5:16 PM CDT Gender Identity Female 04/05/2018 4:37 PM ICE CREAM SERVER Sexual Orientation Straight 04/05/2018 4: 37 PM ICE CREAM SERVER documented as of this encounter Plan of Treatment Upcoming Encounters Date Type Department Care Team (Late st Contact Info) Description 08/08/2025 9:00 AM CDT Office Visit [facility] Medical Group Multispecialty Care - [address], [address] [place] [address] Lj Wallace MD 3 [facility] [address] [place] [address] documented as of this encounter Visit Diagnoses Not on filedocumented in this encounter Additional Health Concerns Assessment Noted Time PHQ-9 Depression Total Score: 2 02/21/20 24 10:56 AM CDT documented as of this encounter Care Teams Heat Treat Puller Relationship Specialty Start Date End Date Saida Fox MD [address] [place] [id number] PCP - General FAMILY PRACTICE 04/08/23 documented as of this encounter
--- OUTSIDE RECORDS SUMMARY | 2024-08-09 20:46 | XMS_ITS | Clinical Summary ---
Author Organization [facility] Address [address] [place] [address] Care Team Providers Care Motor Vehicle Examiner Name Role Phone Unavailable Primary Care Provider Unavailabl e Allergies No known active allergies Medications albuterol HFA (PROVENTIL HFA,VENTOLIN HFA,PROAIR HFA) 90 mcg/actuation inhaler Inhale 2 puffs every 4 (four) hours as needed for wheezing 1 each 01/24/2022 Active Surgical History Surgery Date Site/Laterality Comments WRIST SURGERY Right Medical History Medical History Date Comments Diabetes mellitus (HCC) Hypertension Social History Tobacco Use Types Packs/Day Years Used Date Smoking Tobacco: Every Day Personal Safety Answer Date Recorded Getting School Help Needed Not on file 08/26 Comments No Sex and Gender Information Value Date Recorded Sex Assigned at Not on file Legal Sex Female 7:38 PM METAL STAMPER Gender Identity Not on file Sexual Orientation Not on file Obstetrics History Last Filed Vital Signs Vital Sign Reading [...] 08/24/2022 1:33 PM CDT Plan of Treatment Health Maintenance Due Date Last Done Comments Breast Cancer Screening-Mammogram 1981 Cervical Cancer Screening 1981 Depression Screening 1981 Hepatitis C Screening 1981 Varicella Vaccines (1 of 2 - 13+ 2-dose series) 1994 Hepatitis B Screening 07/20/1999 Regular Well Visit/Exam 18-64 07/20/1999 Pneumococcal vaccine <65 (1 of 2 - PCV) 2000 DTaP/Tdap/Td Vaccine (2 - Td or Tdap) 12/11/2021 12/12/2011 Covid-19 Vaccine (2 - 2023-2 5 season) 2023 07/24/2020 Influenza Vaccine (Season Ended) 2024 03/26/20 22 HPV Vaccines Aged Out No longer eligi ble based on patient's age to complete this topic [place] [address] [place] [address]
--- OUTSIDE RECORDS SUMMARY | 2024-08-09 20:46 | XMS_ITS | Encounter Summary ---
Author Organization [facility] Address [address] [place] [address] Care Team Providers Care Floral Clerk Name Role Phone Saida Fox MD Primary Care Provider [phone] Reason for Visit * Reason Onset Date Comments Information 12/30/2023 Encounter Details Date Type Department Care Team (Late st Contact Info) Description 12/30/2023 MyCPush Computingt Message Enc [facility] Medical Group Family Medicine - [address], [address] [place] [address] Saida Fox MD [facility] [address] [place] [address] Medicine question Social History Tobacco Use Types Packs/Day Years [...] Sex Assigned at Female 04/05/2018 4:37 PM VOCATIONAL NURSE Legal Sex Female 5:16 PM CDT Gender Identity Female 04/05/2018 4:37 PM VOCATIONAL NURSE Sexual Orientation Straight 04/05/2018 4: 37 PM VOCATIONAL NURSE documented as of this encounter Progress Notes * Suzanne Chavis MA - 12/30/2023 9:04 AM CDTFrom: Derek Stevenson To: Dr. Saida Fox Sent: 12/30/2023 8:14 AM CDT Subject: Medicine question My corporate financial analyst has me taking Valtrex. Said shingles can come back. I have had the vaccine and Brayan concerned about taking this medication. People have developed kidney issues and it has harsh side effects. Should I be taking this? I value your opinion and want to know if I should really be taking this medication. Also you and I discussed that I am being billed close to $500 for my pap test. You said don???t pay it and you would look into it. I am getting billed still with constant remindersthat it is past due. documented in this encounter Plan of Treatment Upcoming Encounters Date Type Department Care Team (Late st Contact Info) Description 08/08/2025 9:00 AM CDT Office Visit [facility] Medical Group Multispecialty Care - [facility] [address] [facility] [place] [address] Lj Wallace MD 3 [facility] [address] [place] [address] documented as of this encounter Visit Diagnoses Not on filedocumented in this encounter Additional Health Concerns Assessment Noted Time PHQ-9 Depression Total Score: 1 04/08/20 23 3:12 PM VOCATIONAL NURSE documented as of this encounter Care Teams Floral Clerk Relationship Specialty Start Date End Date Saida Fox MD [address] [place] [address] [place] [address] PCP - General FAMILY PRACTICE 04/08/23 documented as of this encounter
--- OUTSIDE RECORDS SUMMARY | 2024-08-09 20:47 | XMS_ITS | Encounter Summary ---
Author Organization [facility] Address [address] [place] [address] Care Team Providers Care Director Call Name Role Phone Brenda Shelton MD Primary Care Provider [phone] Trever Elliott Primary Care Provider [facility] Saida Figueroa MD Primary Care Provider [phone] Encounter Details Date Type Department Care Team (Late st Contact Info) Description 01/19/2022 MyChart Message Enc [facility] Medical [facility] Family and Sports Medicine [address] [address] Alea, [facility] Provider Schedule Appointment: Annual Physical Social History Tobacco Use Types Packs/Day Years Used Date Smoking Tobacco: Every Day Cigarettes 1 20 Smokeless Tobacco: Never Alcohol Use Standard Drinks/Week Comments No 0 (1 standard drink = 0.6 oz pur e alcohol) PHQ-2 Answer Date Recorded PHQ-2 Score - If the patient scores above 3, please move on to questions 3-9 0 11/10/2020 Comments Unknown Sex and Gender Information Value Date Recorded Sex Assigned at Female 04/05/2018 4:37 PM STEEP TENDER Legal Sex Female 5:16 PM CDT Gender Identity Female 04/05/2018 4:37 PM STEEP TENDER Sexual Orientation Straight 04/05/2018 4: 37 PM STEEP TENDER documented as of this encounter Plan of Treatment Upcoming Encounters Date Type Department Care Team (Late st Contact Info) Description 08/08/2025 9:00 AM CDT Office Visit [facility] Medical Group Multispecialty Care - [facility] 3 [facility] [address] [place] [address] Lj Wallace MD [facility] [address] [place] [address] documented as of this encounter Visit Diagnoses Not on filedocumented in this encounter Additional Health Concerns Assessment Noted Time PHQ-9 Depression Total Score: 0 11/11/19 21 1:22 PM CDT documented as of this encounter Care Teams Director Call Relationship Specialty Start Date End Date Brenda Shelton MD [address] [facility] [address] [place] [address] PCP - General FAMILY PRACTICE 05/29/20 08/26/22 Trever Elliott PA [address] [facility] [address] [place] [address] PCP - General PHYSICIAN LAW REPORTER 09/14/22 04/07/23 Saida Fox MD [address] [place] [address] [address] [place] [address] PCP - General FAMILY PRACTICE 04/08/23 documented as of this encounter
--- OUTSIDE RECORDS SUMMARY | 2024-08-09 20:47 | XMS_ITS | Encounter Summary ---
Author Organization [facility] Address [address] [facility] [place] [address] Care Team Providers Care Assessment Technician Name Role Phone Brenda Shelton MD Primary Care Provider [phone] Trever Elliott Primary Care Provider [phone] Saida Fox MD Primary Care Provider [phone] Encounter Details Date Type Department Care Team (Late st Contact Info) Description 09/18/2022 Ophth Exam [facility] - Ophthalmology [address] [place] [address] Bernie Anders DO [address] [place] [address] Social History Tobacco Use Types Packs/Day Years Used Date Smoking Tobacco: Every Day Cigarettes Smokeless Tobacco: Never Alcohol Use Standard Drinks/Week Comments No 0 (1 standard drink = 0.6 oz pur e alcohol) Comments Unknown Sex and Gender Information Value Date Recorded Sex Assigned at Not on file Legal Sex Female 5:19 PM STATE ARCHIVIST Gender Identity Not on file Sexual Orientation Not on file documented as of this encounter Plan of Treatment Not on file documented as of this encounter Visit Diagnoses Not on filedocumented in this encounter Care Teams Assessment Technician Relationship Specialty Start Date End Date Brenda Shelton MD [address] [place] [phone] PCP - General 09/10/15 11/01/22 Trever Elliott PA [address] [place] [address] PCP - General Physician Cafe Aide 11/02/22 11/20/23 Saida Fox MD [facility], [address] [place] [address] [place] [address] PCP - General Family Medicine 11/21/23 documented as of this encounter
--- OUTSIDE RECORDS SUMMARY | 2024-08-09 20:47 | XMS_ITS | Encounter Summary ---
Author Organization [facility] Address [address] [place] [id number] Care Team Providers Care Microwave Engineer Name Role Phone Brenda Shelton MD Primary Care Provider [phone] Trever Elliott Primary Care Provider Unavail able Brenda Shelton MD Primary Care Provider [phone] Elliott Primary Care Provider Unavail able Saida Fox MD Primary Care Provider [phone] Encounter Details Date Type Department Care Team (Late st Contact Info) Description 09/30/2018 Abstract [facility] CONVERSION [address] [place] [address] , Generic Conversion, Social History Tobacco Use Types Packs/Day Years Used Date Smoking Tobacco: Every Day Cigarettes 0.5 20 Smokeless Tobacco: Never Comments:pt would like to ta lk to dr about stopping Alcohol Use Standard Drinks/Week Comments No 0 (1 standard drink = 0.6 oz pur e alcohol) Comments Unknown Sex and Gender Information Value Date Recorded Sex Assigned at Female 04/05/2018 4:37 PM CERTIFIED NURSING ATTENDANT Legal Sex Female 5:16 PM CDT Gender Identity Female 04/05/2018 4:37 PM CERTIFIED NURSING ATTENDANT Sexual Orientation Straight 04/05/2018 4: 37 PM CERTIFIED NURSING ATTENDANT documented as of this encounter Plan of Treatment Upcoming Encounters Date Type Department Care Team (Late st Contact Info) Description 08/08/2025 9:00 AM CDT Office Visit [facility] [place] [address] [place] [address] Lj Wallace MD [address] [place] [address] documented as of this encounter Visit Diagnoses Not on filedocumented in this encounter Additional Health Concerns Infection Onset Date Last Indicated Resolved Time COVID-19 Rule Out 04/21/2020 04/21/2020 04/23/2020 8:01 PM CERTIFIED NURSING ATTENDANT COVID-19 Confirmed 04/21/2020 04/21/2020 12:34 AM CERTIFIED NURSING ATTENDANT COVID-19 Rule Out 03/23/2021 03/23/2021 03/23/2021 9:45 AM CERTIFIED NURSING ATTENDANT COVID-19 Rule Out 03/23/2021 03/23/2021 03/23/2021 10:35 AM CERTIFIED NURSING ATTENDANT COVID-19 Rule Out 03/23/2021 03/23/2021 03/25/2021 2:03 AM CERTIFIED NURSING ATTENDANT COVID-19 Rule Out 04/28/2021 04/28/2021 04/28/2021 11:12 AM CERTIFIED NURSING ATTENDANT COVID-19 Rule Out 04/28/2021 04/28/2021 04/30/2021 2:49 AM CERTIFIED NURSING ATTENDANT documented as of this encounter Care Teams Microwave Engineer Relationship Specialty Start Date End Date Brenda Shelton MD [address] [place] [address] PCP - General 03/03/15 05/17/20 Trever Elliott PA [address] [place] [address] PCP - General PHYSICIAN RUG SHAMPOOER 05/18/20 05/28/20 Brenda Shelton MD [address] [place] [address] PCP - General FAMILY PRACTICE 05/29/20 08/26/22 Trever Elliott PA [address] [facility] [address] [place] [address] PCP - General PHYSICIAN RUG SHAMPOOER 09/14/22 04/07/23 Saida Fox MD [address] [address] PCP - General FAMILY PRACTICE 04/08/23 documented as of this encounter
--- OUTSIDE RECORDS SUMMARY | 2024-08-09 20:47 | XMS_ITS | Encounter Summary ---
Author Organization [facility] Address [address] [place] [address] Care Team Providers Care Manager Configuration Name Role Phone Brenda Shelton MD Primary Care Provider [phone] Trever Elliott Primary Care Provider [phone] Saida Fox MD Primary Care Provider Encounter Details Date Type Department Care Team (Late st Contact Info) Description 10/09/2022 Ophth Exam [facility] - Ophthalmology [address] [place] [address] Mariel Marshall MD [address] [place] [address] Social History Tobacco Use Types Packs/Day Years Used Date Smoking Tobacco: Every Day Cigarettes Smokeless Tobacco: Never Alcohol Use Standard Drinks/Week Comments No 0 (1 standard drink = 0.6 oz pur e alcohol) Comments Unknown Sex and Gender Information Value Date Recorded Sex Assigned at Not on file Legal Sex Female 5:19 PM [employer]PERINTENDENT [employer] Gender Identity Not on file Sexual Orientation Not on file documented as of this encounter Plan of Treatment Not on file documented as of this encounter Visit Diagnoses Not on filedocumented in this encounter Care Teams Manager Configuration Relationship Specialty Start Date End Date Brenda Shelton MD [address] [place] [id number] PCP - General 09/10/15 11/01/22 Trever Elliott PA [address] [place] [phone] PCP - General Physician Billet Inspector 11/02/22 11/20/23 Saida Fox MD [address] [place] [address], [facility] [address] [facility] [id number] [place] [id number] PCP - General Family Medicine 11/21/23 documented as of this encounter
== END 2024-08-09 21:00 | disposition home or self-care (01) ==
PROVIDERS: Physician Assistant; Emergency Provider Physician Assistant
DX: S20.219A Contusion of unspecified front wall of thorax, initial encounter (principal); S46.912A Strain of unspecified muscle, fascia and tendon at shoulder and upper arm level, left arm, initial encounter; V89.2XXA Person injured in unspecified motor-vehicle accident, traffic, initial encounter
CPT/HCPCS: 36415; 71260; 72125; 73030; 74177; 80053; 83690; 85025; 85610; 85730; 99284; A9270; Q9967